=== PATIENT | male | born 1940 | race Caucasian/White ===

== ENCOUNTER 2018-08-31 21:50 | Emergency (ER) | payer MEDICARE ==
--- NOTE | 2018-08-31 22:12 | ED ---
GI/ HPI - HPI Summary HPI Summary: This patient is a 78 year old M transferred from [place] by ambulance with a chief complaint of penile swelling since this morning. Patient reports edema. Patient denies pain and fever. The area is non-necrotic. When he first saw symptoms, he attempted to treat it with Vaseline and was unsuccessful. He is uncircumcised and sometimes has to pull his foreskin back to urinate, but reports that he has not done this in the last few days. Today his foreskin would not rebound back into place. They attempted to put it in place while in [place] but were unsuccessful. He does not have a urologist. No PMHx urinary problems. PMHx iron deficiency, nothing else. Rx iron pills. - History of Current Complaint Chief Complaint: EDUrogenitalProblems Stated Complaint: UROGENITAL PROBLEMS Hx Obtained From: Patient Onset/Duration: Started Hours Ago Timing: Constant Pain Intensity: 0 Additional Locations for Males: Penis Additional Signs & Symptoms: Positive: Penile Swelling - Allergy/Home Medications Allergies/Adverse Reactions: Allergies Allergy/AdvReac Type Severity Reaction Status Date / Time aspirin Allergy Unknown Verified 08/31/18 21:57 Reaction Details Home Medications: Home Medications Iron 90 mg PO BID 08/31/18 [History Confirmed 08/31/18] PMH/Surg Hx/FS Hx/Imm Hx Previously Healthy: Yes - No history Infectious Disease History: No Infectious Disease History: Denies: Traveled Outside the in Last 30 Days - Family History Known Family History: Positive: None - Social History Alcohol Use: None Substance Use Type: Reports: None Smoking Status (MU): Never Smoked Tobacco Review of Systems Negative: Fever Positive: other - penile swelling. Negative: pain All Other Systems Reviewed And Are Negative: Yes Physical Exam - Summary Physical Exam Summary: Appearance: Well-appearing, Well-nourished, lying in bed comfortable Skin: Warm, dry, no obvious rash Eyes: sclera anicteric, no conjunctival pallor ENT: mucous membranes moist Neck: deferred Respiratory: No signs of respiratory distress Cardiovascular: Appears well perfused, pulses are nml Abdomen: deferred Musculoskeletal: Moving all 4 extremities without obvious discomfort Neurological: Awake and alert, mentation is normal, speech is fluent and appropriate Psychiatric: affect is normal, does not appear anxious or depressed : There is paraphimosis with considerable swelling. There is no color change in the glands. No signs of ischemia. Triage Information Reviewed: Yes Vital Signs On Initial Exam: Initial Vitals Temp Pulse Resp BP Pulse Ox 98.6 F 101 18 196/112 98 08/31/18 21:53 08/31/18 21:53 08/31/18 21:53 08/31/18 21:53 08/31/18 21:53 Vital Signs Reviewed: Yes Diagnostics - Vital Signs Vital Signs Temp Pulse Resp BP Pulse Ox 08/31/18 22:03 87 100 08/31/18 22:02 96 181/91 100 08/31/18 21:59 93 177/124 100 08/31/18 21:54 105 196/112 98 08/31/18 21:53 98.6 F 110 18 196/112 100 - Laboratory Lab Statement: Any lab studies that have been ordered have been reviewed, and results considered in the medical decision making process. GIGU Course/Dx - Course Course Of Treatment: This patient is a 78 year old M transferred from [place] by ambulance with a chief complaint of penile swelling since this morning. Patient reports edema. Patient denies pain and fever. The area is non-necrotic. When he first saw symptoms, he attempted to treat it with Vaseline and was unsuccessful. He is uncircumcised and sometimes has to pull his foreskin back to urinate, but reports that he has not done this in the last few days. Today his foreskin would not rebound back into place. They attempted to put it in place while in [place] but were unsuccessful. I have attempted myself here and am unsuccessful. I spoke with Dr. Jean by phone who would like to see the patient in his office at 8 am. The pt does not have an easily accessible ride overnight so we will hold him in the ED overnight and discharge him in the am to see Dr. Jean. - Diagnoses Provider Diagnoses: Paraphimosis - Physician Notifications Discussed Care Of Patient With: Warren Jean Time Discussed With Above Provider: 22:30 - see him at 8:00 am tomorrow Discharge - Sign-Out/Discharge Documenting (check all that apply): Patient Departure - Discharge Plan Condition: Good Disposition: HOME Patient Education Materials: Acute Paraphimosis (ED) Referrals: Warren Jean MD [Medical Doctor] - Additional Instructions: Go directly to Dr. Jean's office, he asked that you be there at 8 am so he can address the problem definitively. - Billing Disposition and Condition Condition: GOOD Disposition: Home - Attestation Statements Document Initiated by Ernie: Yes Documenting Scribe: Derrek Winter Provider For Whom Ernie is Documenting (Include Credential): Cristopher Luna MD Scribe Attestation: I, Derrek Winter, scribed for Cristopher Luna MD on 09/01/18 at 1836. Scribe Documentation Reviewed: Yes Provider Attestation: The documentation as recorded by the Derrek tong accurately reflects the service I personally performed and the decisions made by me, Cristopher Luna MD Status of Scrbautistae Document: Viewed
--- OUTSIDE RECORDS SUMMARY | 2018-08-31 22:34 | XMS REPORT | Continuity of Care Document ---
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 Eneida Madera MD Primary Care Physician Unavailable Payers Type Date Identification Numbers Payment Provider Subscriber Policy Number: [id number] Medicare Chema Rodrigues PayID: [id number] [address] [place] [address] Policy Number: [id number] [facility] Chema Rodrigues PayID: [id number] [address] [place] [address] Advance Directives Description No Information Available Problems Description No Information Family History Description No Information Available Social History Type Date Description Comments Sex Unknown Allergies, Adverse Reactions, Alerts Description No Known Drug Allergies Medications Medication Date Status Form Strength Qnty SIG Indications Ordering Provider Ferrous Active Tablets 325(65Fe) mg 1 po qd Unknown Sulfate 00 Immunizations Description No Information Available Vital Signs Date Vital Result Comment 08/31/2018 3:42pm Weight 150.00 lb Height 72 inches 6'0" BMI (Body Mass Index) 20.3 kg/m2 BP Systolic 131 mmHg BP Diastolic 73 mmHg Heart Rate 110 /min O2 % BldC Oximetry 100 % Body Temperature 96.7 F Pain Level 0 08/09/2007 1:41pm Weight 157.00 lb Height 72 inches 6'0" BMI (Body Mass Index) 21.3 kg/m2 Heart Rate 68 /min O2 % BldC Oximetry 99 % Results Description No Information Available Procedures Description No Information Available Encounters Type Date Location Provider Dx Diagnosis Office Visit 08/09/2007 1:30p Main Office Charlie Almendarez M.D. 380.4 Cerumen Removal Plan of Treatment No Information Available
--- OUTSIDE RECORDS SUMMARY | 2018-08-31 22:35 | XMS REPORT | Continuity of Care Document ---
:1940 External Reference #:[id number] Author Name Britney Modi Care Team Providers Name Role Phone Eneida Madera MD Primary Care Physician Unavailable Payers Type Date Identification Numbers Payment Provider Subscriber Effective: Policy Number: [id number] Medicare Chema Rodrigues 2006 PayID: [id number] [address] [place] [address] Policy Number: [id number] [facility] [employer] Program Chema Rodrigues PayID: [id number] [address] [place] [address] Advance Directives Description No Information Available Problems Date Description Provider Status Onset: 02/03/2011 Open wound of finger without complication Eneida Madera M.D. Active Onset: 02/03/2011 Hyperlipidemia Eneida Madera M.D. Active Family History Date Family Member(s) Problem(s) Comments General Osteoarthritis Father Heart Disease Father Cancer Mother Diabetes Mellitus, II First Brother Alzheimer's Disease First Sister Diabetes Mellitus, II First Sister Heart Disease First Sister Sleep Apnea Second Sister Cancer Social History Type Date Description Comments Sex Unknown Tobacco Use Start: Unknown Denies Smoking QUIT IN 1970 ETOH Use Denies alcohol use Tobacco Use Start: Unknown End: Unknown Patient is a former smoker Smoking Status Reviewed: 07/07/17 Patient is a former smoker Allergies, Adverse Reactions, Alerts Date Description Reaction Status Severity Comments 03/21/2006 Aspirin Active Bleeding Ulcer 03/28/2006 Bee Stings Active Medications Medication Date Status Form Strength Qnty SIG Indications Ordering Provider Iron (Ferrous Active Tablets ER 142(45Fe) 180tabs 2 by D50.9 Eneida Sulfate) 018 mg mouth Santy, every M.D. day No Meds Active Eneida 006 Gauss, M.D. Iron (Ferrous Hx Tablets 256(28Fe) 100tabs 1 by D50.9 Eneida Gluconate) 017 - mg mouth Gauss, every M.D. 018 day Ranitidine Hx Capsules 150mg 60caps 1 by K29.61 Eneida HCL 017 - mouth Gauss, twice a M.D. 018 day Celebrex Hx Capsules 200mg 60caps 1 po D50.9 Eneida 016 - bid Gauss, with M.D. 016 food Meloxicam Hx Tablets 7.5mg 60tabs 1 by D50.9 Eneida 016 - mouth Gauss, twice a M.D. 017 day with food Iron (Ferrous Hx Tablets 256(28Fe) 100tabs 1 by D50.9 Eneida Gluconate) 016 - mg mouth Gauss, every M.D. 017 day Centrum Hx Tablets Adult 50 120tabs 1 by 281.9 Eneida Silver Adult 015 - mouth Gauss, 50+ daily M.D. 017 Celebrex Hx Capsules 200mg 60caps 1 po Eneida 010 - bid Gauss, with M.D. 011 food Flexeril Hx Tablets 5mg 30tabs 1 po 840.9 Eneida 009 - tid prn Gauss, M.D. 009 Celebrex Hx Capsules 200mg 20caps 1 PO 840.9 Eneida 009 - bid Gauss, M.D. 009 Immunizations CPT Code Status Date Vaccine Reaction Lot # [id number] Given 06/05/2018 Influenza Virus (Afluria) Split Virus 3 Years Of Age And Older 75617 Given 06/05/2018 Influenza Virus Vaccine, Quadrivalent, Split, Preservative Free Q2035 Given 07/07/2017 Influenza Virus (Afluria) [id number] Split Virus 3 Years Of Age And Older Q2037 Given 04/28/2016 Influenza Vaccine [id number] (Fluvirin) 3 Years Of Age Or Older Q2037 Given 06/30/2015 Influenza Vaccine [id number] (Fluvirin) 3 Years Of Age Or Older Q2037 Given 05/09/2014 Influenza Vaccine (Fluvirin) 3 Years Of Age Or Older [id number] Given 05/30/2013 Influenza Virus (Afluria) Split Virus 3 Years Of Age And Older Q2035 Given 05/30/2013 Influenza Virus (Afluria) [id number] Split Virus 3 Years Of Age And Older 32160 Given 04/05/2013 Zostavax Done through [facility] 73161 Given 05/18/2012 [place]ov[place] [id number] [place] [address] Given 05/18/2012 Pneumovax Polyvalent Inj Im Q2037 Given 05/18/2012 Influenza Vaccine [id number] (Fluvirin) 3 Years Of Age Or Older Q2037 Given 05/18/2012 Influenza Vaccine (Fluvirin) 3 Years Of Age Or Older Q2036 Given 06/08/2011 Flulaval [id number] 60300 Given 02/03/2011 Tetanus,Diphtheria,Adut/Ad [id number] ol Pertussis 72505 Given 06/23/2010 Influenza Vaccine [id number] 03032 Given 04/17/2009 Influenza Vaccine [id number] 33320 Given 11/10/1998 DT Immunization DIP/Tet (History Only) Vital Signs Date Vital Result Comment 08/16/2018 11:46am BP Systolic 134 mmHg BP Diastolic 92 mmHg Heart Rate 80 /min Height 70 inches 5'10" Weight 150.00 lb BMI (Body Mass Index) 21.5 kg/m2 O2 % BldC Oximetry 97 % 07/26/2018 2:02pm BP Systolic 130 mmHg sitting BP Diastolic 78 mmHg sitting BP Systolic Recheck 138 mmHg standing BP Diastolic Recheck 78 mmHg standing Height 70 inches 5'10" Weight 150.00 lb BMI (Body Mass Index) 21.5 kg/m2 06/05/2018 10:59am BP Systolic 132 mmHg BP Diastolic 80 mmHg BP Systolic Recheck 90 mmHg standing BP Diastolic Recheck 60 mmHg standing Heart Rate 78 /min Respiratory Rate 18 /min Height 70 inches 5'10" Weight 150.00 lb BMI (Body Mass Index) 21.5 kg/m2 O2 % BldC Oximetry 93 % 04/26/2018 2:13pm BP Systolic 146 mmHg BP Diastolic 88 mmHg BP Systolic Recheck 110 mmHg standing BP Diastolic Recheck 80 mmHg standing Height 70 inches 5'10" Weight 152.00 lb BMI (Body Mass Index) 21.8 kg/m2 12/05/2017 10:46am BP Systolic 128 mmHg BP Diastolic 68 mmHg Heart Rate 107 /min Respiratory Rate 18 /min Height 70 inches 5'10" Weight 163.00 lb BMI (Body Mass Index) 23.4 kg/m2 O2 % BldC Oximetry 97 % 10/10/2017 11:18am BP Systolic 126 mmHg BP Diastolic 86 mmHg Respiratory Rate 18 /min Height 70 inches 5'10" Weight 160.00 lb BMI (Body Mass Index) 23.0 kg/m2 07/07/2017 10:18am BP Systolic 120 mmHg BP Diastolic 78 mmHg Height 70 inches 5'10" Weight 158.00 lb BMI (Body Mass Index) 22.7 kg/m2 01/05/2017 11:12am BP Systolic 130 mmHg BP Diastolic 80 mmHg Height 70 inches 5'10" Weight 165.00 lb BMI (Body Mass Index) 23.7 kg/m2 12/08/2016 10:00am BP Systolic 130 mmHg BP Diastolic 82 mmHg Height 70 inches 5'10" Weight 166.00 lb BMI (Body Mass Index) 23.8 kg/m2 06/09/2016 11:35am BP Systolic 132 mmHg BP Diastolic 90 mmHg Height 70 inches 5'10" Weight 161.00 lb BMI (Body Mass Index) 23.1 kg/m2 04/28/2016 10:47am BP Systolic 132 mmHg BP Diastolic 80 mmHg Height 70 inches 5'10" Weight 170.00 lb BMI (Body Mass Index) 24.4 kg/m2 02/19/2016 10:03am BP Systolic 132 mmHg BP Diastolic 60 mmHg 02/18/2016 3:14pm BP Systolic 132 mmHg BP Diastolic 60 mmHg 06/30/2015 2:01pm BP Systolic 132 mmHg BP Diastolic 76 mmHg Height 70 inches 5'10" Weight 157.00 lb BMI (Body Mass Index) 22.5 kg/m2 05/15/2015 10:30am BP Systolic 130 mmHg BP Diastolic 80 mmHg Height 70 inches 5'10" Weight 154.00 lb BMI (Body Mass Index) 22.1 kg/m2 04/14/2015 10:15am BP Systolic 130 mmHg BP Diastolic 70 mmHg Height 70 inches 5'10" Weight 158.00 lb BMI (Body Mass Index) 22.7 kg/m2 04/17/2014 1:41pm BP Systolic 110 mmHg BP Diastolic 70 mmHg Height 70 inches 5'10" Weight 158.00 lb BMI (Body Mass Index) 22.7 kg/m2 04/05/2013 10:44am BP Systolic 132 mmHg BP Diastolic 80 mmHg Height 70 inches 5'10" Weight 160.00 lb BMI (Body Mass Index) 23.0 kg/m2 11/06/2012 1:34pm BP Systolic 132 mmHg BP Diastolic 80 mmHg Height 70 inches 5'10" Weight 166.00 lb BMI (Body Mass Index) 23.8 kg/m2 04/06/2012 10:17am BP Systolic 102 mmHg BP Diastolic 70 mmHg Height 70 inches 5'10" Weight 155.00 lb BMI (Body Mass Index) 22.2 kg/m2 03/29/2011 10:56am BP Systolic 122 mmHg BP Diastolic 73 mmHg Height 72 inches 6'0" Weight 156.00 lb BMI (Body Mass Index) 21.2 kg/m2 02/03/2011 3:00pm BP Systolic 121 mmHg BP Diastolic 71 mmHg Body Temperature 98.9 F Weight 159.00 lb 06/23/2010 2:21pm BP Systolic 106 mmHg BP Diastolic 78 mmHg Weight 160.00 lb 03/16/2010 11:45am BP Systolic 120 mmHg BP Diastolic 88 mmHg 03/16/2010 11:05am BP Systolic 130 mmHg BP Diastolic 92 mmHg Weight 158.00 lb 06/30/2009 11:14am BP Systolic 128 mmHg BP Diastolic 90 mmHg Weight 158.00 lb 04/17/2009 10:52am BP Systolic 124 mmHg BP Diastolic 70 mmHg Height 72 inches 6'0" Weight 156.00 lb BMI (Body Mass Index) 21.2 kg/m2 09/10/2008 2:33pm BP Systolic 132 mmHg BP Diastolic 78 mmHg Height 72 inches 6'0" Weight 165.00 lb BMI (Body Mass Index) 22.4 kg/m2 04/03/2008 10:07am BP Systolic 130 mmHg BP Diastolic 80 mmHg Height 72 inches 6'0" Weight 158.00 lb BMI (Body Mass Index) 21.4 kg/m2 04/04/2007 1:42pm BP Systolic 128 mmHg BP Diastolic 84 mmHg Height 72 inches 6'0" 04/04/2007 1:17pm BP Systolic 140 mmHg BP Diastolic 90 mmHg Height 72 inches 6'0" Weight 158.00 lb BMI (Body Mass Index) 21.4 kg/m2 04/04/2006 10:40am BP Systolic 130 mmHg BP Diastolic 78 mmHg Height 72 inches 6'0" Weight 159.00 lb BMI (Body Mass Index) 21.6 kg/m2 Results Test Date Facility Test Result H/L Range Note CBC W/ Diff & PLT 08/02/2018 [facility] WBC 10.6 thous/L 3.8-10.8 [address] [facility] [address] [phone] RBC 4.53 mill/L 4.20-5.80 Hemoglobin 11.0 g/dL Low 13.2-17.1 Hematocrit 34.2 % Low 38.5-50.0 MCV 75.6 FL Low 80.0-100.0 MCH 24.2 pg Low 27.0-33.0 MCHC 32.0 g/dL 32.0-36.0 RDW 19.5 % High 11.0-15.0 Platelet Count 550 thous/L High 140-400 MPV 9.5 FL 7.5-12.5 Neutrophils,Absolute 5830 cells/L 0681-8545 Bands,Absolute PENDING Metamyelocytes,Absolute PENDING Myelocytes,Absolute PENDING Promyelocytes,Absolute PENDING Lymphocytes,Absolute 3922 cells/L High 850-3900 Monocytes,Absolute 424 cells/L 200-950 Eosinophils,Absolute 318 cells/L 15-500 Basophils,Absolute 106 cells/L 0-200 Blast Cells,Absolute PENDING Nucleated RBC,Absolute PENDING Total Neutrophils,% 55 % 40-75 Bands,% PENDING Metamyelocytes,% PENDING Myelocytes,% PENDING Promyelocytes,% PENDING Total Lymphocytes,% 37 % 12-47 Reactive Lymphocytes PENDING Monocytes,% 4 % 4-12 Eosinophils,% 3 % 0-4 Basophils,% 1 % 0-1 1 Blasts,% PENDING Nucleated RBC PENDING Comment See Message 2 Basic Metabolic Panel 08/02/2018 [facility] Sodium 137 mmol/L 135-146 [address] [facility] [place], [place] [id number] [phone] Potassium 4.6 mmol/L 3.5-5.3 Chloride 103 mmol/L 98-110 Carbon Dioxide 28 mmol/L 20-32 3 Calcium 8.9 mg/dL 8.6-10.3 Glucose 92 mg/dL 65-99 4 Urea Nitrogen (BUN) 15 mg/dL 7-25 Creatinine 1.32 mg/dL High 0.70-1.18 5 BUN/Creatinine Ratio 11.4 6-22 Egfr Non-Afr. [place] 52 ML/MIN/1.73M2 Low > Or=60 Egfr 60 ML/MIN/1.73M2 > Or=60 Ua RFX Micro & 07/25/2018 [facility] Urine Color YELLOW Yellow 6 Culture II [address] [place] [address] [phone] Urine Clarity CLEAR Clear Urine Glucose - Dipstick NEGATIVE mg/dL Negative Urine Bilirubin - Dipstick NEGATIVE Negative Urine Ketone NEGATIVE mg/dL Negative Urine Specific [place] <=1.005 Low 1.010-1.030 Urine Blood NEGATIVE Negative Urine PH 6.0 Low 6.5-7.5 Urine Protein - Dipstick NEGATIVE mg/dL Negative Urine Urobilinogen - Dipstick 1.0 E.U./dL N 0.2-1.0 Urine Nitrite - Dipstick NEGATIVE Negative Urine Leuk Esterase NEGATIVE Negative Source: URINE, CLEAN CAT <SEE NOTE> 7 Basic Metabolic Panel 05/22/2018 [facility] Sodium 143 mmol/L 135-[address] [place] [address] [phone] Potassium 5.4 mmol/L High 3.5-5.3 Chloride 110 mmol/L 98-110 Carbon Dioxide 23 mmol/L 20-32 9 Calcium 9.3 mg/dL 8.6-10.3 Glucose 96 mg/dL 65-99 10 Urea Nitrogen (BUN) 16 mg/dL 7-25 Creatinine 1.67 mg/dL High 0.70-1.18 11 BUN/Creatinine Ratio 9.6 6-22 Egfr Non-Afr. [place] 39 ML/MIN/1.73M2 Low > Or=60 Egfr 45 ML/MIN/1.73M2 Low > Or=60 CBC 05/22/2018 [facility] WBC 7.9 3.8-10.8 (H/H,RBC,Indices,WBC,PLT) [address] thous[address] [address] [phone] RBC 4.42 mill/L 4.20-5.80 Hemoglobin 9.1 g/dL Low 13.2-17.1 Hematocrit 29.9 % Low 38.5-50.0 MCV 67.6 FL Low 80.0-100.0 MCH 20.5 pg Low 27.0-33.0 MCHC 30.4 g/dL Low 32.0-36.0 RDW 24.9 % High 11.0-15.0 Platelet Count 506 thous/L High 140-400 MPV 9.4 FL 7.5-12.5 Iron Deficiency 05/22/2018 [facility] Iron,Total 14 g/dL Low 50-[address] [place] [address] [phone] Tibc 393 g/dL 250-425 % Saturation 4 % Low 15-60 Ferritin 7 NG/ML Low 20-380 Hemogram 11/28/2017 [facility] WBC 8.1 thous/L 3.8-10.[address] [place] [address] [phone] RBC 4.86 mill/L 4.20-5.80 Hemoglobin 9.8 g/dL Low 13.2-17.1 Hematocrit 32.7 % Low 38.5-50.0 MCV 67.2 FL Low 80.0-100.0 MCH 20.2 pg Low 27.0-33.0 MCHC 30.1 g/dL Low 32.0-36.0 RDW 18.3 % High 11.0-15.0 Laboratory test 11/28/2017 [facility] Iron,Total 19 g/dL Low 50-[address] [place] [address] [phone] CBC W/ Diff & PLT 10/03/2017 [facility] WBC 8.4 3.8-10.[address] thous[address] [address] [phone] RBC 4.76 mill/L 4.20-5.80 Hemoglobin 9.9 g/dL Low 13.2-17.1 Hematocrit 32.7 % Low 38.5-50.0 MCV 68.7 FL Low 80.0-100.0 MCH 20.9 pg Low 27.0-33.0 MCHC 30.4 g/dL Low 32.0-36.0 RDW 20.6 % High 11.0-15.0 Platelet Count 372 thous/L 140-400 Platelet Sufficiency PENDING MPV 9.2 FL 7.5-12.5 Neutrophils,Absolute 6060 cells/L 0450-8002 Bands,Absolute PENDING Metamyelocytes,Absolute PENDING Myelocytes,Absolute PENDING Promyelocytes,Absolute PENDING Lymphocytes,Absolute 1780 cells/L 850-3900 Monocytes,Absolute 270 cells/L 200-950 Eosinophils,Absolute 270 cells/L 15-500 Basophils,Absolute 50 cells/L 0-200 Blast Cells,Absolute PENDING Nucleated RBC,Absolute PENDING Total Neutrophils,% 72 % 40-75 Bands,% PENDING Metamyelocytes,% PENDING Myelocytes,% PENDING Promyelocytes,% PENDING Total Lymphocytes,% 21 % 12-47 Monocytes,% 3 % Low 4-12 Eosinophils,% 3 % 0-4 Basophils,% 1 % 0-1 12 Blasts,% PENDING Nucleated RBC PENDING RBC Morphology PENDING Anisocytosis 3+ Poikilocytosis PENDING Microcytosis 2+ Macrocytosis PENDING Polychromasia PENDING Hypochromasia 3+ Target Cells PENDING Basophilic Stippling PENDING Comment PENDING Basic Metabolic Panel 10/03/2017 [facility] Sodium 143 mmol/L 135-146 [address] [place] [address] [phone] Potassium 5.1 mmol/L 3.5-5.3 Chloride 110 mmol/L 98-110 Carbon Dioxide 27 mmol/L 20-31 Calcium 9.4 mg/dL 8.6-10.3 Glucose 97 mg/dL 65-99 13 Urea Nitrogen (BUN) 17 mg/dL 7-25 Creatinine 1.69 mg/dL High 0.70-1.18 14 BUN/Creatinine Ratio 10.2 6-22 Egfr Non-Afr. [place] 39 ML/MIN/1.73M2 Low > Or=60 Egfr 45 ML/MIN/1.73M2 Low > Or=60 Laboratory test 10/03/2017 [facility] PSA,Total 2.1 NG/ML < Or=4.0 15 finding [address] [place] [address] [phone] Lipid Panel 10/03/2017 [facility] Cholesterol 185 mg/dL <[address] [place] [address] [phone] HDL Cholesterol 65 mg/dL >40 Cholesterol/HDL Ratio 2.8 CALC <5.0 LDL Chol,Calculated 106 mg/dL High 0-100 16 Triglycerides 53 mg/dL <150 Non-HDL Cholesterol 121 mg/dL <130 17 Basic Metabolic Panel 06/30/2017 [facility] Sodium 143 mmol/L 135-146 [address] [facility] [facility] [address] [phone] Potassium 4.9 mmol/L 3.5-5.3 Chloride 110 mmol/L 98-110 Carbon Dioxide 25 mmol/L 20-31 Calcium 8.7 mg/dL 8.6-10.3 Glucose 96 mg/dL 65-99 18 Urea Nitrogen (BUN) 14 mg/dL 7-25 Creatinine 1.35 mg/dL High 0.70-1.18 19 BUN/Creatinine Ratio 10.4 6-22 Egfr Non-Afr. [place] 51 ML/MIN/1.73M2 Low > Or=60 Egfr 59 ML/MIN/1.73M2 Low > Or=60 Lipid Panel 06/30/2017 [facility] Cholesterol 189 mg/dL <199 [address] [place] [address] [phone] HDL Cholesterol 63 mg/dL >40 Cholesterol/HDL Ratio 3.0 CALC <5.0 LDL Chol,Calculated 112 mg/dL High <100 20 Triglycerides 48 mg/dL <150 Non-HDL Cholesterol 126 mg/dL <130 21 Laboratory test 06/30/2017 [facility] PSA,Total 2.1 NG/ML < Or=4.0 22 finding [address] [facility] [facility] [address] [phone] CBC W/ Diff & PLT 06/30/2017 [facility] WBC 7.4 thous/L 3.8-10.8 [address] [place] [address] [phone] RBC 4.35 mill/L 4.20-5.80 Hemoglobin 8.1 g/dL Low 13.2-17.1 Hematocrit 27.9 % Low 38.5-50.0 MCV 64.1 FL Low 80.0-100.0 MCH 18.6 pg Low 27.0-33.0 MCHC 29.0 g/dL Low 32.0-36.0 23 RDW 18.7 % High 11.0-15.0 Platelet Count 441 thous/L High 140-400 Platelet Sufficiency PENDING MPV 9.1 FL 7.5-12.5 Neutrophils,Absolute 5180 cells/L 7424-3750 Bands,Absolute PENDING Metamyelocytes,Absolute PENDING Myelocytes,Absolute PENDING Promyelocytes,Absolute PENDING Lymphocytes,Absolute 1850 cells/L 850-3900 Monocytes,Absolute 222 cells/L 200-950 Eosinophils,Absolute 148 cells/L 15-500 Basophils,Absolute PENDING Blast Cells,Absolute PENDING Nucleated RBC,Absolute PENDING Total Neutrophils,% 70 % 40-75 Bands,% PENDING Metamyelocytes,% PENDING Myelocytes,% PENDING Promyelocytes,% PENDING Total Lymphocytes,% 25 % 12-47 Monocytes,% 3 % Low 4-12 Eosinophils,% 2 % 0-4 Basophils,% PENDING Blasts,% PENDING Nucleated RBC PENDING RBC Morphology PENDING Anisocytosis PENDING Poikilocytosis PENDING Microcytosis 3+ Macrocytosis PENDING Polychromasia PENDING Hypochromasia 3+ Target Cells PENDING Basophilic Stippling PENDING Comment See Message 24 Iron & Ferritin 12/01/2016 [facility] Iron,Total 24 g/dL Low 50-180 6 [place] [address] [phone] Ferritin 9 NG/ML Low 20-380 CBC W/ Diff & PLT 12/01/2016 [facility] WBC 8.8 thous/L 3.8-10.8 6 [place] [address] [phone] RBC 4.96 mill/L 4.20-5.80 Hemoglobin 11.2 g/dL Low 13.2-17.1 Hematocrit 37.4 % Low 38.5-50.0 MCV 75.3 FL Low 80.0-100.0 MCH 22.6 pg Low 27.0-33.0 MCHC 29.9 g/dL Low 32.0-36.0 RDW 19.0 % High 11.0-15.0 Platelet Count 360 thous/L 140-400 Platelet Sufficiency NORMAL Normal MPV 9.5 FL 7.5-12.5 Neutrophils,Absolute 5780 cells/L 7911-5152 Bands,Absolute PENDING Metamyelocytes,Absolute PENDING Myelocytes,Absolute PENDING Promyelocytes,Absolute PENDING Lymphocytes,Absolute 2290 cells/L 850-3900 Monocytes,Absolute 390 cells/L 200-950 Eosinophils,Absolute 320 cells/L 15-500 Basophils,Absolute 30 cells/L 0-200 Blast Cells,Absolute PENDING Nucleated RBC,Absolute PENDING Total Neutrophils,% 66 % 40-75 Bands,% PENDING Metamyelocytes,% PENDING Myelocytes,% PENDING Promyelocytes,% PENDING Total Lymphocytes,% 26 % 12-47 Monocytes,% 4 % 4-12 Eosinophils,% 4 % 0-4 Basophils,% 0 % 0-1 25 Blasts,% PENDING Nucleated RBC PENDING RBC Morphology PENDING Anisocytosis PENDING Poikilocytosis PENDING Microcytosis PENDING Macrocytosis PENDING Polychromasia PENDING Hypochromasia 2+ Target Cells PENDING Basophilic Stippling PENDING Comment PENDING Iron & Ferritin 06/02/2016 [facility] Iron,Total 19 g/dL Low 50-[address] [place], [place] [id number] [phone] Ferritin 8 NG/ML Low 20-380 Laboratory test 06/02/2016 [facility] Vitamin 327 pg/mL 200-1100 [address] B12,[place] [address] [phone] CBC W/ Diff & 06/02/2016 [facility] WBC 7.2 3.8-10.[address] thous[address] [place], [place] [id number] [phone] RBC 4.63 mill/L 4.20-5.80 Hemoglobin 8.9 g/dL Low 13.2-17.1 Hematocrit 29.8 % Low 38.5-50.0 MCV 64.4 FL Low 80.0-100.0 MCH 19.1 pg Low 27.0-33.0 MCHC 29.7 g/dL Low 32.0-36.0 RDW 25.0 % High 11.0-15.0 Platelet Count 356 thous/L 140-400 Platelet Sufficiency PENDING MPV 8.9 FL 7.5-11.5 Neutrophils,Absolute 4176 cells/L 6266-7607 Bands,Absolute PENDING Metamyelocytes,Absolute PENDING Myelocytes,Absolute PENDING Promyelocytes,Absolute PENDING Lymphocytes,Absolute 2664 cells/L 850-3900 Monocytes,Absolute 288 cells/L 200-950 Eosinophils,Absolute PENDING Basophils,Absolute 72 cells/L 0-200 Blast Cells,Absolute PENDING Nucleated RBC,Absolute PENDING Total Neutrophils,% 58 % 40-75 Bands,% PENDING Metamyelocytes,% PENDING Myelocytes,% PENDING Promyelocytes,% PENDING Total Lymphocytes,% 37 % 12-47 Monocytes,% 4 % 4-12 Eosinophils,% PENDING Basophils,% 1 % 0-1 27 Blasts,% PENDING Nucleated RBC PENDING RBC Morphology PENDING Anisocytosis 3+ Poikilocytosis PENDING Microcytosis 3+ Macrocytosis PENDING Polychromasia PENDING Hypochromasia 3+ Target Cells PENDING Basophilic Stippling PENDING Comment See Message 28 CBC W/ Diff & PLT 04/12/2016 [facility] WBC 7.1 thous/L 3.8-10.8 [address] [place], [place] [address] [phone] RBC 4.47 mill/L 4.20-5.80 Hemoglobin 7.8 g/dL Low 13.2-17.1 Hematocrit 27.2 % Low 38.5-50.0 MCV 60.9 FL Low 80.0-100.0 MCH 17.5 pg Low 27.0-33.0 MCHC 28.8 g/dL Low 32.0-36.0 RDW 20.8 % High 11.0-15.0 Platelet Count 322 thous/L 140-400 Platelet Sufficiency NORMAL Normal MPV 9.0 FL 7.5-11.5 Neutrophils,Absolute 3550 cells/L 1050-5748 Bands,Absolute PENDING Metamyelocytes,Absolute PENDING Myelocytes,Absolute PENDING Promyelocytes,Absolute PENDING Lymphocytes,Absolute 3053 cells/L 850-3900 Monocytes,Absolute 426 cells/L 200-950 Eosinophils,Absolute 71 cells/L 15-500 Basophils,Absolute PENDING Blast Cells,Absolute PENDING Nucleated RBC,Absolute PENDING Total Neutrophils,% 50 % 40-75 Bands,% PENDING Metamyelocytes,% PENDING Myelocytes,% PENDING Promyelocytes,% PENDING Total Lymphocytes,% 43 % 12-47 Monocytes,% 6 % 4-12 Eosinophils,% 1 % 0-4 Basophils,% PENDING Blasts,% PENDING Nucleated RBC PENDING RBC Morphology PENDING Anisocytosis 3+ Poikilocytosis PENDING Microcytosis 3+ Macrocytosis PENDING Polychromasia PENDING Hypochromasia 3+ Target Cells PENDING Basophilic Stippling PENDING Comment See Message 29 Laboratory test 04/12/2016 [facility] Iron,Total 17 g/dL Low 50-[address] [place] [address] [phone] BMP W/O Egfr 04/12/2016 [facility] Sodium 141 mmol/L 135-[address] [place] [address] [phone] Potassium 4.2 mmol/L 3.5-5.3 Chloride 109 mmol/L 98-110 Carbon Dioxide 24 mmol/L 20-31 Calcium 8.6 mg/dL 8.6-10.3 Glucose 96 mg/dL 65-99 30 Urea Nitrogen 15 mg/dL 7-25 Creatinine 1.46 mg/dL High 0.70-1.18 31 BUN/Creatinine Ratio 10.1 6-22 Lipid Panel 04/12/2016 [facility] Cholesterol 180 mg/dL 125-[address] [place] [address] [phone] HDL Cholesterol 58 mg/dL > Or=40 Cholesterol/HDL Ratio 3.1 < Or=5.0 LDL Chol,Calculated 109 mg/dL <130 32 Triglycerides 65 mg/dL <150 Non-HDL Cholesterol 121 mg/dL 33 Laboratory test 04/12/2016 [facility] PSA,Total 1.6 NG/ML < Or=4.0 [address] [place] [address] [phone] Laboratory test 06/26/2015 [facility] Iron,Total 17 g/dL Low 50-[address] [place] [address] [phone] CBC W/ Diff & PLT 06/26/2015 [facility] WBC 7.0 3.8-10.[address] [place] [address] [phone] RBC 4.19 mill/L Low 4.20-5.80 Hemoglobin 8.8 g/dL Low 13.2-17.1 Hematocrit 28.5 % Low 38.5-50.0 MCV 68.1 FL Low 80.0-100.0 MCH 21.1 pg Low 27.0-33.0 MCHC 31.0 g/dL Low 32.0-36.0 RDW 18.0 % High 11.0-15.0 Platelet Count 337 thous/L 140-400 Platelet Sufficiency PENDING MPV 8.9 FL 7.5-11.5 Neutrophils,Absolute 4360 cells/L 0041-9455 Bands,Absolute PENDING Metamyelocytes,Absolute PENDING Myelocytes,Absolute PENDING Promyelocytes,Absolute PENDING Lymphocytes,Absolute 2090 cells/L 850-3900 Monocytes,Absolute 400 cells/L 200-950 Eosinophils,Absolute 80 cells/L 15-500 Basophils,Absolute 30 cells/L 0-200 Blast Cells,Absolute PENDING Nucleated RBC,Absolute PENDING Total Neutrophils,% 63 % 40-75 Bands,% PENDING Metamyelocytes,% PENDING Myelocytes,% PENDING Promyelocytes,% PENDING Total Lymphocytes,% 30 % 12-47 Monocytes,% 6 % 4-12 Eosinophils,% 1 % 0-4 Basophils,% 0 % 0-1 35 Blasts,% PENDING Nucleated RBC PENDING RBC Morphology PENDING Anisocytosis PENDING Poikilocytosis PENDING Microcytosis 2+ Macrocytosis PENDING Polychromasia PENDING Hypochromasia 2+ Target Cells PENDING Basophilic Stippling PENDING Comment PENDING Laboratory test 05/06/2015 [facility] PSA,Total 1.4 NG/ML 0.0-4.0 [address] [place] [address] [phone] Hemoglobin A1c 5.6 % 0.0-5.6 37 Iron & Ferritin 05/06/2015 [facility] Iron,Total 20 g/dL Low 50-[address] [place] [address] [phone] Ferritin 4 NG/ML Low 20-380 Laboratory test 05/06/2015 [facility] Vitamin 465 pg/mL 200-[address] B12,[place] [address] [phone] BMP W/O Egfr 05/06/2015 [facility] Sodium 143 mmol/L 135-[address] [place] [address] [phone] Potassium 4.0 mmol/L 3.5-5.3 Chloride 108 mmol/L 98-110 Carbon Dioxide 22 mmol/L 19-30 Calcium 9.3 mg/dL 8.6-10.3 Glucose 99 mg/dL 65-99 38 Urea Nitrogen 22 mg/dL 7-25 Creatinine 1.53 mg/dL High 0.70-1.18 39 BUN/Creatinine Ratio 14.1 6-22 CBC W/ Diff & PLT 05/06/2015 [facility] WBC 7.6 thous/L 3.8-10.8 [address] [place] [address] [phone] RBC 4.43 mill/L 4.20-5.80 Hemoglobin 9.5 g/dL Low 13.2-17.1 Hematocrit 31.4 % Low 38.5-50.0 MCV 70.9 FL Low 80.0-100.0 MCH 21.5 pg Low 27.0-33.0 MCHC 30.3 g/dL Low 32.0-36.0 RDW 17.9 % High 11.0-15.0 Platelet Count 314 thous/L 140-400 Platelet Sufficiency PENDING MPV 9.7 FL 7.5-11.5 Neutrophils,Absolute 4190 cells/L [id number] Bands,Absolute PENDING Metamyelocytes,Absolute PENDING Myelocytes,Absolute PENDING Promyelocytes,Absolute PENDING Lymphocytes,Absolute 2790 cells/L 850-3900 Monocytes,Absolute 420 cells/L 200-950 Eosinophils,Absolute 170 cells/L 15-500 Basophils,Absolute 0 cells/L 0-200 Blast Cells,Absolute PENDING Nucleated RBC,Absolute PENDING Total Neutrophils,% 55 % 40-75 40 Bands,% PENDING Metamyelocytes,% PENDING Myelocytes,% PENDING Promyelocytes,% PENDING Total Lymphocytes,% 37 % 12-47 Monocytes,% 6 % 4-12 Eosinophils,% 2 % 0-4 Basophils,% 0 % 0-1 Blasts,% PENDING Nucleated RBC PENDING RBC Morphology PENDING Anisocytosis PENDING Poikilocytosis PENDING Microcytosis PENDING Macrocytosis PENDING Polychromasia PENDING Hypochromasia PENDING Target Cells PENDING Basophilic Stippling PENDING Comment PENDING CBC W/ Diff & PLT 04/07/2015 [facility] WBC 6.8 thous/L 3.8-10.8 [address] [place] [address] [phone] RBC 4.34 mill/L 4.20-5.80 Hemoglobin 9.4 g/dL Low 13.2-17.1 Hematocrit 31.1 % Low 38.5-50.0 MCV 71.5 FL Low 80.0-100.0 MCH 21.8 pg Low 27.0-33.0 MCHC 30.4 g/dL Low 32.0-36.0 RDW 17.6 % High 11.0-15.0 Platelet Count 293 thous/L 140-400 Platelet Sufficiency PENDING MPV 9.4 FL 7.5-11.5 Neutrophils,Absolute 3970 cells/L 4353-0731 Bands,Absolute PENDING Metamyelocytes,Absolute PENDING Myelocytes,Absolute PENDING Promyelocytes,Absolute PENDING Lymphocytes,Absolute 2160 cells/L 850-3900 Monocytes,Absolute 470 cells/L 200-950 Eosinophils,Absolute 140 cells/L 15-500 Basophils,Absolute 60 cells/L 0-200 Blast Cells,Absolute PENDING Nucleated RBC,Absolute PENDING Total Neutrophils,% 58 % Not Established Bands,% PENDING Metamyelocytes,% PENDING Myelocytes,% PENDING Promyelocytes,% PENDING Total Lymphocytes,% 32 % Not Established Monocytes,% 7 % Not Established Eosinophils,% 2 % Not Established Basophils,% 1 % Not Established Blasts,% PENDING Nucleated RBC PENDING RBC Morphology PENDING Anisocytosis PENDING Poikilocytosis PENDING Microcytosis PENDING Macrocytosis PENDING Polychromasia PENDING Hypochromasia PENDING Target Cells PENDING Basophilic Stippling PENDING Comment PENDING BMP W/O Egfr 04/07/2015 [facility] Sodium 142 mmol/L 135-146 [address] [place] [address] [phone] Potassium 4.6 mmol/L 3.5-5.3 Chloride 108 mmol/L 98-110 Carbon Dioxide 25 mmol/L 19-30 Calcium 9.3 mg/dL 8.6-10.3 Glucose 86 mg/dL 65-99 41 Urea Nitrogen 19 mg/dL 7-25 Creatinine 1.45 mg/dL High 0.70-1.18 42 BUN/Creatinine Ratio 12.8 6-22 Laboratory test 04/07/2015 [facility] Direct LDL 130 mg/dL High <130 [address] [place] [address] [phone] PSA,Total 1.5 NG/ML 0.0-4.0 44 CBC W/ Diff & PLT 03/29/2014 [facility] WBC 7.7 thous/L 3.8-10.[address] [place] [address] [phone] RBC 4.75 mill/L 4.20-5.80 Hemoglobin 13.6 g/dL 13.2-17.1 Hematocrit 40.6 % 38.5-50.0 MCV 85.4 FL 80.0-100.0 MCH 28.7 pg 27.0-33.0 MCHC 33.7 g/dL 32.0-36.0 RDW 14.2 % 11.0-15.0 Platelet Count 231 thous/L 140-400 Platelet Sufficiency PENDING Neutrophils,Absolute 4000 cells/L 8253-7972 Bands,Absolute PENDING Metamyelocytes,Absolute PENDING Myelocytes,Absolute PENDING Promyelocytes,Absolute PENDING Lymphocytes,Absolute 2880 cells/L 850-3900 Monocytes,Absolute 520 cells/L 200-950 Eosinophils,Absolute 240 cells/L 15-500 Basophils,Absolute 40 cells/L 0-200 Blast Cells,Absolute PENDING Nucleated RBC,Absolute PENDING Total Neutrophils,% 52 % Not Established Bands,% PENDING Metamyelocytes,% PENDING Myelocytes,% PENDING Promyelocytes,% PENDING Total Lymphocytes,% 37 % Not Established Monocytes,% 7 % Not Established Eosinophils,% 3 % Not Established Basophils,% 0 % Not Established Blasts,% PENDING Nucleated RBC PENDING RBC Morphology PENDING Anisocytosis PENDING Poikilocytosis PENDING Microcytosis PENDING Macrocytosis PENDING Polychromasia PENDING Hypochromasia PENDING Target Cells PENDING Basophilic Stippling PENDING Comment PENDING BMP W/O Egfr 03/29/2014 [facility] Sodium 141 mmol/L 135-[address] [place] [address] [phone] Potassium 5.0 mmol/L 3.5-5.3 Chloride 105 mmol/L 98-110 Carbon Dioxide 25 mmol/L 19-30 Calcium 9.6 mg/dL 8.6-10.3 Glucose 89 mg/dL 65-99 45 Urea Nitrogen 16 mg/dL 7-25 Creatinine 1.43 mg/dL High 0.70-1.18 46 BUN/Creatinine Ratio 11.5 6-22 Lipid Panel 03/29/2014 [facility] Cholesterol 225 mg/dL High 125-[address] [place] [address] [phone] HDL Cholesterol 64 mg/dL > Or=40 Cholesterol/HDL Ratio 3.5 < Or=5.0 LDL Chol,Calculated 146 mg/dL High <130 47 Triglycerides 77 mg/dL <150 Non-HDL Cholesterol 161 mg/dL High 48 BMP W/O Egfr 03/26/2013 [facility] Sodium 138 mmol/L 135-[address] [place] [address] [phone] Potassium 4.6 mmol/L 3.5-5.3 Chloride 106 mmol/L 98-110 Carbon Dioxide 25 mmol/L 19-30 Calcium 9.3 mg/dL 8.6-10.3 Glucose 79 mg/dL 65-99 49 Urea Nitrogen 20 mg/dL 7-25 Creatinine 1.44 mg/dL High 0.70-1.18 50 BUN/Creatinine Ratio 13.7 6-22 CBC W/ Diff & PLT 03/26/2013 [facility] WBC 7.6 thous/L 3.8-10.[address] [place] [address] [phone] RBC 5.24 mill/L 4.20-5.80 Hemoglobin 15.1 g/dL 13.2-17.1 Hematocrit 45.5 % 38.5-50.0 MCV 86.9 FL 80.0-100.0 MCH 28.8 pg 27.0-33.0 MCHC 33.2 g/dL 32.0-36.0 RDW 14.9 % 11.0-15.0 Platelet Count 229 thous/L 140-400 Neutrophils,Absolute 4240 cells/L 3736-1122 Lymphocytes,Absolute 2700 cells/L 850-3900 Monocytes,Absolute 400 cells/L 200-950 Eosinophils,Absolute 180 cells/L 15-500 Basophils,Absolute 50 cells/L 0-200 Total Neutrophils,% 56 % 38-80 Total Lymphocytes,% 36 % 15-49 Monocytes,% 5 % 0-13 Eosinophils,% 2 % 0-8 Basophils,% 1 % 0-2 Laboratory test 03/26/2013 [facility] LDL 138 mg/dL High <130 [address] [place] [address] [phone] Laboratory test 03/29/2012 [facility] PSA,Total 1.7 NG/ML 0.0-4.0 52 finding [address] [facility] [address] [phone] Basic Metabolic 03/29/2012 [facility] Sodium 141 mmol/L 135-[address] [place] [address] [phone] Potassium 4.4 mmol/L 3.5-5.3 Chloride 107 mmol/L 98-110 Carbon Dioxide 25 mmol/L 21-33 Calcium 9.1 mg/dL 8.6-10.3 Glucose 84 mg/dL 65-99 53 Urea Nitrogen 18 mg/dL 7-25 Creatinine 1.37 mg/dL High 0.70-1.18 54 BUN/Creatinine Ratio 13.1 6-22 Egfr Non-Afr. [place] 52 ML/MIN/1.73M2 Low > Or=60 Egfr 60 ML/MIN/1.73M2 > Or=60 Lipid Panel 03/29/2012 [facility] Cholesterol 206 mg/dL High 125-[address] [place] [address] [phone] HDL Cholesterol 55 mg/dL > Or=40 Cholesterol/HDL Ratio 3.7 < Or=5.0 LDL Chol,Calculated 140 mg/dL High <130 55 Triglycerides 54 mg/dL <150 Non-HDL Cholesterol 151 mg/dL 56 CBC W/ Diff & PLT 03/29/2012 [facility] WBC 6.7 thous/L 3.8-10.[address] [place] [address] [phone] RBC 4.78 mill/L 4.20-5.80 Hemoglobin 14.1 g/dL 13.2-17.1 Hematocrit 42.7 % 38.5-50.0 MCV 89.4 FL 80.0-100.0 MCH 29.6 pg 27.0-33.0 MCHC 33.1 g/dL 32.0-36.0 RDW 14.4 % 11.0-15.0 Platelet Count 219 thous/L 140-400 Neutrophils,Absolute 3710 cells/L 8256-2957 Lymphocytes,Absolute 2350 cells/L 850-3900 Monocytes,Absolute 360 cells/L 200-950 Eosinophils,Absolute 210 cells/L 15-500 Basophils,Absolute 40 cells/L 0-200 Total Neutrophils,% 56 % 38-80 Total Lymphocytes,% 35 % 15-49 Monocytes,% 5 % 0-13 Eosinophils,% 3 % 0-8 Basophils,% 1 % 0-2 CBC W/ Diff & PLT 03/17/2011 [facility] WBC 6.7 thous/L 3.8-10.8 [address] [place] [address] [phone] RBC 4.80 mill/L 4.20-5.80 Hemoglobin 14.3 g/dL 13.2-17.1 Hematocrit 43.1 % 38.5-50.0 MCV 89.8 FL 80.0-100.0 MCH 29.8 pg 27.0-33.0 MCHC 33.1 g/dL 32.0-36.0 RDW 14.3 % 11.0-15.0 Platelet Count 222 thous/L 140-400 Neutrophils,Absolute 3880 cells/L 6622-1374 Lymphocytes,Absolute 2200 cells/L 850-3900 Monocytes,Absolute 460 cells/L 200-950 Eosinophils,Absolute 100 cells/L 15-500 Basophils,Absolute 40 cells/L 0-200 Total Neutrophils,% 58 % 38-80 Total Lymphocytes,% 33 % 15-49 Monocytes,% 7 % 0-13 Eosinophils,% 2 % 0-8 Basophils,% 1 % 0-2 Basic Metabolic Panel 03/17/2011 [facility] Sodium 140 mmol/L 135-146 [address] [place] [address] [phone] Potassium 5.1 mmol/L 3.5-5.3 Chloride 106 mmol/L 98-110 Carbon Dioxide 27 mmol/L 21-33 Calcium 9.4 mg/dL 8.6-10.2 Glucose 86 mg/dL 65-99 57 Urea Nitrogen 17 mg/dL 7-25 Creatinine 1.34 mg/dL 0.67-1.54 BUN/Creatinine Ratio 12.7 6-22 Egfr Non-Afr. [place] 53 ML/MIN/1.73M2 Low > Or=60 Egfr 62 ML/MIN/1.73M2 > Or=60 Lipid Panel 03/17/2011 [facility] Cholesterol 203 mg/dL High 125-[address] [place], [place] [id number] [phone] HDL Cholesterol 59 mg/dL > Or=40 Cholesterol/HDL Ratio 3.4 < Or=5.0 LDL Chol,Calculated 128 mg/dL <130 58 Triglycerides 78 mg/dL <150 TSH & T4,Free 03/17/2011 [facility] TSH,3RD 2.69 mIU/L 0.40-4.[address] [employer] [place], [place] [id number] [phone] T4,Free 1.3 ng/dL 0.8-1.8 Laboratory test 03/03/2010 [facility] PSA,Total 1.3 NG/ML 0.0-4.0 [address] [place] [address] [phone] CBC W/ Diff & PLT 03/03/2010 [facility] WBC 7.6 thous/L 3.8-10.[address] [place] [address] [phone] RBC 4.69 mill/L 4.20-5.80 Hemoglobin 14.3 g/dL 13.2-17.1 Hematocrit 42.1 % 38.5-50.0 MCV 89.7 FL 80.0-100.0 MCH 30.4 pg 27.0-33.0 MCHC 33.9 g/dL 32.0-36.0 RDW 14.2 % 11.0-15.0 Platelet Count 222 thous/L 140-400 Platelet Sufficiency NORMAL Normal Neutrophils,Absolute 3910 cells/L 4409-3600 Bands,Absolute DNR cells/L 0-750 Metamyelocytes,Absolute DNR cells/L 0 Myelocytes,Absolute DNR cells/L 0 Promyelocytes,Absolute DNR cells/L 0 Lymphocytes,Absolute 2820 cells/L 850-3900 Monocytes,Absolute 620 cells/L 200-950 Eosinophils,Absolute 170 cells/L 15-500 Basophils,Absolute 30 cells/L 0-200 Blast Cells,Absolute DNR cells/L 0 Nucleated RBC,Absolute DNR cells/L 0 Total Neutrophils,% 53 % 38-80 Bands,% DNR % 0-10 Metamyelocytes,% DNR % Myelocytes,% DNR % Promyelocytes,% DNR % Total Lymphocytes,% 37 % 15-49 Monocytes,% 8 % 0-13 Eosinophils,% 2 % 0-8 Basophils,% 0 % 0-2 Blasts,% DNR % Nucleated RBC DNR /100WBC 0 RBC Morphology NORMAL Anisocytosis DNR Poikilocytosis DNR Microcytosis DNR Macrocytosis DNR Polychromasia DNR Hypochromasia DNR Target Cells DNR Basophilic Stippling DNR Comment DNR Basic Metabolic Panel 03/03/2010 [facility] Sodium 141 mmol/L 135-[address] [place] [address] [phone] Potassium 4.9 mmol/L 3.5-5.3 Chloride 105 mmol/L 98-110 Carbon Dioxide 26 mmol/L 21-33 Calcium 9.5 mg/dL 8.6-10.2 Glucose 92 mg/dL 65-99 60 Urea Nitrogen 19 mg/dL 7-25 Creatinine 1.36 mg/dL 0.76-1.46 BUN/Creatinine Ratio 13.6 6-22 Egfr Non-Afr. [place] 52 ML/MIN/1.73M2 Low > Or=60 Egfr >60 ML/MIN/1.73M2 > Or=60 Lipid Panel 03/03/2010 [facility] Cholesterol 212 mg/dL High 125-[address] [place] [address] [phone] HDL Cholesterol 62 mg/dL > Or=40 Triglycerides 61 mg/dL <150 Cholesterol/HDL Ratio 3.4 < Or=5.0 LDL Chol,Calculated 138 mg/dL High <130 61 Lipid Panel 03/27/2009 [facility] Cholesterol 210 mg/dL High 125-[address] [place] [address] [phone] HDL Cholesterol 61 mg/dL > Or=40 Triglycerides 89 mg/dL <150 Cholesterol/HDL Ratio 3.4 < Or=5.0 LDL Chol,Calculated 131 mg/dL High <130 62 CBC W/ Diff & PLT 03/27/2009 [facility] WBC 6.5 thous/L 3.8-10.8 [address] [facility] [address] [phone] RBC 4.93 mill/L 4.20-5.80 Hemoglobin 14.7 g/dL 13.2-17.1 Hematocrit 42.7 % 38.5-50.0 MCV 86.7 FL 80.0-100.0 MCH 29.9 pg 27.0-33.0 MCHC 34.5 g/dL 32.0-36.0 RDW 13.9 % 11.0-15.0 Platelet Count 214 thous/L 140-400 Platelet Sufficiency NORMAL Normal Neutrophils,Absolute 3300 cells/L 1217-5721 Bands,Absolute DNR cells/L 0-750 Metamyelocytes,Absolute DNR cells/L 0 Myelocytes,Absolute DNR cells/L 0 Promyelocytes,Absolute DNR cells/L 0 Lymphocytes,Absolute 2550 cells/L 850-3900 Monocytes,Absolute 410 cells/L 200-950 Eosinophils,Absolute 150 cells/L 15-500 Basophils,Absolute 40 cells/L 0-200 Blast Cells,Absolute DNR cells/L 0 Nucleated RBC,Absolute DNR cells/L 0 Total Neutrophils,% 51 % 38-80 Bands,% DNR % 0-10 Metamyelocytes,% DNR % Myelocytes,% DNR % Promyelocytes,% DNR % Total Lymphocytes,% 40 % 15-49 Monocytes,% 6 % 0-13 Eosinophils,% 2 % 0-8 Basophils,% 1 % 0-2 Blasts,% DNR % Nucleated RBC DNR /100WBC 0 RBC Morphology NORMAL Anisocytosis DNR Poikilocytosis DNR Microcytosis DNR Macrocytosis DNR Polychromasia DNR Hypochromasia DNR Target Cells DNR Basophilic Stippling DNR Comment DNR Basic Metabolic Panel 03/27/2009 [facility] Sodium 139 mmol/L 135-[address] [place] [address] [phone] Potassium 4.0 mmol/L 3.5-5.3 Chloride 104 mmol/L 98-110 Carbon Dioxide 24 mmol/L 21-33 Calcium 9.2 mg/dL 8.6-10.2 Glucose 85 mg/dL 65-99 63 Urea Nitrogen 14 mg/dL 7-25 Creatinine 1.41 mg/dL 0.76-1.46 BUN/Creatinine Ratio 9.9 6-22 Egfr Non-Afr. [place] 50 ML/MIN/1.73M2 Low > Or=60 Egfr >60 ML/MIN/1.73M2 > Or=60 Laboratory test 03/27/2009 [facility] PSA,Total 0.8 NG/ML 0.0-4.0 [address] [place] [address] [phone] TSH,3RD Generation 4.13 mU/L 0.40-4.50 T4,Free 1.1 ng/dL 0.8-1.8 Hepatic Function 03/19/2008 [facility] Alkaline Phosphatase 64 U/L 40- 115 [address] [place] [address] [phone] Ast 16 U/L 10-35 Alt 8 U/L Low 9-60 Bilirubin,Total 0.4 mg/dL 0.2-1.2 Bilirubin,Direct 0.1 mg/dL < Or=0.2 Protein,Total 6.6 g/dL 6.2-8.3 Albumin 4.1 g/dL 3.6-5.1 Globulin,Calculated 2.5 g/dL 2.1-3.7 A/G Ratio 1.7 1.0-2.1 Basic Metabolic Panel 03/19/2008 [facility] Sodium 142 mmol/L 135-[address] [place] [address] [phone] Potassium 4.3 mmol/L 3.5-5.3 Chloride 108 mmol/L 98-110 Carbon Dioxide 29 mmol/L 21-33 Calcium 8.9 mg/dL 8.6-10.2 Glucose 83 mg/dL 65-99 65 Urea Nitrogen 17 mg/dL 7-25 Creatinine 1.23 mg/dL 0.50-1.30 BUN/Creatinine Ratio 14.1 6-22 Egfr Non-Afr. [place] 59 ML/MIN/1.73M2 Low > Or=60 Egfr >60 ML/MIN/1.73M2 > Or=60 Laboratory test 03/19/2008 [facility] PSA,Total 1.3 NG/ML 0.0-4.0 66 finding [address] [facility] [address] [phone] CBC W/ Diff & PLT 03/19/2008 [facility] WBC 7.0 thous/L 3.8-10.8 [address] [facility] [address] [phone] RBC 4.66 mill/L 4.20-5.80 Hemoglobin 13.8 g/dL 13.2-17.1 Hematocrit 41.1 % 38.5-50.0 MCV 88.2 FL 80.0-100.0 MCH 29.7 pg 27.0-33.0 MCHC 33.7 g/dL 32.0-36.0 RDW 13.6 % 11.0-15.0 Platelet Count 207 thous/L 140-400 Platelet Sufficiency NORMAL Normal Neutrophils,Absolute 3720 cells/L 7063-8957 Bands,Absolute DNR cells/L 0-750 Metamyelocytes,Absolute DNR cells/L 0 Myelocytes,Absolute DNR cells/L 0 Promyelocytes,Absolute DNR cells/L 0 Lymphocytes,Absolute 2670 cells/L 850-3900 Monocytes,Absolute 510 cells/L 200-950 Eosinophils,Absolute 110 cells/L 15-500 Basophils,Absolute 30 cells/L 0-200 Blast Cells,Absolute DNR cells/L 0 Nucleated RBC,Absolute DNR cells/L 0 Total Neutrophils,% 54 % 38-80 Bands,% DNR % 0-10 Metamyelocytes,% DNR % Myelocytes,% DNR % Promyelocytes,% DNR % Total Lymphocytes,% 38 % 15-49 Monocytes,% 7 % 0-13 Eosinophils,% 1 % 0-8 Basophils,% 0 % 0-2 Blasts,% DNR % Nucleated RBC DNR /100WBC 0 RBC Morphology NORMAL Anisocytosis DNR Poikilocytosis DNR Microcytosis DNR Macrocytosis DNR Polychromasia DNR Hypochromasia DNR Target Cells DNR Basophilic Stippling DNR Comment DNR Lipid Panel 03/19/2008 [facility] Cholesterol 189 mg/dL 125-200 [address] [facility] [place] [address] [phone] HDL Cholesterol 55 mg/dL > Or=40 Cholesterol/HDL Ratio 3.4 < Or=5.0 LDL Chol,Calculated 115 mg/dL <130 67 Triglycerides 94 mg/dL <150 CBS W/Automated 03/29/2007 [facility] White Blood 7.8 K/uL 3.4-10.[address] [place], [place] [id number] [phone] Red Blood Count 5.01 M/uL 4.20-5.80 Hemoglobin 15.6 gm/dL 12.8-17.0 Hematocrit 44.2 % 38.0-48.0 Mean Cell Volume 88.3 fL 80.0-96.0 Mean Corpuscular HGB 31.1 pg 27.0-33.0 Mean Corpuscular HGB Conc 35.2 g/dL 31.7-36.0 Platelet Count 224 K/uL 150-400 Red Cell Distri Width %CV 12.7 % 11.6-15.8 Mean Platelet Volume 8.2 fl 6.6-10.6 Neut% 61.4 % 33.0-73.0 Lymph % 28.4 % 17.0-56.0 [place] % 5.3 % 0.0-10.0 Eo% 2.1 % 0.0-5.0 Bas% 1.1 % High 0.1-1.0 Abdi% 1.7 % 0.0-4.0 Neut# 4.8 K/uL 1.8-7.0 Lymph # 2.2 K/uL 1.2-4.0 [place] # 0.4 K/uL 0.0-0.6 Eos # 0.2 K/uL 0.0-0.5 Baso # 0.1 K/uL 0.1-0.2 Abdi# 0.1 0.0-1.5 Laboratory test 03/29/2007 [facility] Prostate 1.0 ng /mL 0-4.0 [address] [place] [address] Antigen [phone] Basic Metabolic 03/29/2007 [facility] Glucose 83 mg/ dL 76-[address] [place], [place] [id number] [phone] BUN 14 mg/dL 5-23 Creatinine 1.3 mg/dL 0.5-1.4 BUN/Creat 10.7 Sodium 139 mEq/L 136-145 Potassium 4.0 mEq/L 3.5-5.1 Chloride 102 mEq/L 98-107 Carbon Dioxide 30 mEq/L 21-32 Anion Gap 11 mEq/L 8-16 Calcium 9.1 mg/dL 8.5-10.1 LDL Cholesterol 03/29/2007 [facility] Cholesterol 220 mg/dL High 120-[address] [place] [address] [phone] Triglycerides 83 mg/dL 0-210 HDL Cholesterol 60 mg/dL 32-96 LDL-Cholesterol 143 mg/dL 62-185 CBC W/ Diff & PLT 03/29/2006 [facility] WBC 7.2 thous/L 3.8-10.[address] [place] [address] [phone] RBC 5.09 mill/L 4.20-5.80 Hemoglobin 14.8 g/dL 13.2-17.1 Hematocrit 43.9 % 38.5-50.0 MCV 86.4 FL 80.0-100.0 MCH 29.0 pg 27.0-33.0 MCHC 33.6 g/dL 32.0-36.0 RDW 14.3 % 11.0-15.0 Platelet Count 232 thous/L 140-400 Platelet Sufficiency NORMAL Neutrophils,Absolute 3660 cells/L 1235-0537 Bands,Absolute DNR cells/L 0-750 Metamyelocytes,Absolute DNR cells/L 0 Myelocytes,Absolute DNR cells/L 0 Promyelocytes,Absolute DNR cells/L 0 Lymphocytes,Absolute 2720 cells/L 850-3900 Monocytes,Absolute 520 cells/L 200-950 Eosinophils,Absolute 220 cells/L 15-500 Basophils,Absolute 30 cells/L 0-200 Blast Cells,Absolute DNR cells/L 0 Nucleated RBC,Absolute DNR cells/L 0 Total Neutrophils,% 52 % 38-80 Bands,% DNR % 0-10 Metamyelocytes,% DNR % Myelocytes,% DNR % Promyelocytes,% DNR % Total Lymphocytes,% 38 % 15-49 Monocytes,% 7 % 0-13 Eosinophils,% 3 % 0-8 Basophils,% 0 % 0-2 Blasts,% DNR % Nucleated RBC DNR /100WBC 0 RBC Morphology NORMAL Anisocytosis DNR Poikilocytosis DNR Microcytosis DNR Macrocytosis DNR Polychromasia DNR Hypochromasia DNR Target Cells DNR Basophilic Stippling DNR Comment DNR Comp Metabolic Panel 03/29/2006 [facility] Sodium 140 mmol/L 135-146 [address] [place] [address] [phone] Potassium 5.1 mmol/L 3.5-5.3 Chloride 106 mmol/L 98-110 Carbon Dioxide 24 mmol/L 21-33 Calcium 9.6 mg/dL 8.5-10.4 Alkaline Phosphatase 70 U/L 20-125 Ast 20 U/L 3-50 Alt 8 U/L 3-60 Bilirubin,Total 0.6 mg/dL 0.2-1.5 Glucose 83 mg/dL 65-99 69 Urea Nitrogen 20 mg/dL 7-30 Creatinine 1.4 mg/dL 0.5-1.4 BUN/Creatinine Ratio 14.1 6-25 Protein,Total 7.2 g/dL 6.0-8.3 Albumin 4.5 g/dL 3.2-4.6 Globulin,Calculated 2.7 g/dL 2.2-4.2 A/G Ratio 1.7 0.8-2.0 GFR Estimated 54 ML/MIN/1.7 Low >59 70 Lipid Panel 03/29/2006 [facility] Cholesterol 200 mg/dL High <200 [address] [place] [address] [phone] HDL Cholesterol 50 mg/dL >40 71 Triglycerides 91 mg/dL <150 Cholesterol/HDL Ratio 4.0 <5.0 LDL Chol,Calculated 132 mg/dL High <130 72 Laboratory test 03/29/2006 [facility] PSA,Total 1.0 NG/ML 0.0-4.0 73 finding [address] [place] [address] [phone] TSH 3.64 mU/L 0.40-5.50 T4,Free 1.3 ng/dL 0.8-1.8 1 Relative blood cell counts (%) should be compared with absolute cell counts (cells/mcL). Relative counts may not be clinically meaningful if the absolute count of one or more cell type is decreased. Reference ranges for relative cell counts derived from: A Manual of Laboratory and Diagnostics Tests, 9th Ed, [employer], 2015. Pediatric Reference Intervals, 7th Ed, [employer], 2011. 2 MANUAL DIFFERENTIAL PERFORMED ACCORDING TO ESTABLISHED CRITERIA. 3 Reference range for high altitude clients: 18-30 mmol/L 4 GLUCOSE REFERENCE RANGE BASED ON FASTING SPECIMEN. 5 The upper reference limit for Creatinine is approximately 13% higher for people identified as -[place]. 6 DIZZY,RT SIDE ABD PAIN 7 URINE, CLEAN CATCH 8 FASTING 9 Reference range for high altitude clients: 18-30 mmol/L 10 GLUCOSE REFERENCE RANGE BASED ON FASTING SPECIMEN. 11 The upper reference limit for Creatinine is approximately 13% higher for people identified as -[place]. 12 Relative blood cell counts (%) should be compared with absolute cell counts (cells/mcL). Relative counts may not be clinically meaningful if the absolute count of one or more cell type is decreased. Reference ranges for relative cell counts derived from: A Manual of Laboratory and Diagnostics Tests, 9th Ed, [employer], 2015. Pediatric Reference Intervals, 7th Ed, [employer], 2011. 13 GLUCOSE REFERENCE RANGE BASED ON FASTING SPECIMEN. 14 The upper reference limit for Creatinine is approximately 13% higher for people identified as -[place]. 15 The total PSA value from this assay system is standardized against the WHO standard. The test result will be approximately 20% lower when compared to the equimolar-standardized total PSA ([employer] [place]). Comparison of serial PSA results should be interpreted with this fact in mind. This test was performed using the Siemens chemiluminescent method. Values obtained from different assay methods be used interchangeably. PSA levels, regardless of value, should not be interpreted as absolute evidence of the presence or absence of disease. 16 LDL-C is now calculated using the Urbano-Frantz calculation, which is a validated novel method providing better accuracy than the Friedewald equation in the estimation of LDL-C. Urbano SS et al.DIANA.2013;310(13):8967-9751 (http://education.[employer]Do/faq/UJI419) Desirable range <100 mg/dL for patients with CHD or Diabetes and <70 mg/dL for Diabetic patients with known heart disease 17 For patients with diabetes plus 1 major ASCVD risk factor, treating to a non-HDL-C goal of <100 mg/dL (LDL-C of <70 mg/ dL) is considered a therapeutic option. 18 GLUCOSE REFERENCE RANGE BASED ON FASTING SPECIMEN. 19 The upper reference limit for Creatinine is approximately 13% higher for people identified as -[place]. 20 LDL-C is now calculated using the Urbano-Frantz calculation, which is a validated novel method providing better accuracy than the Friedewald equation in the estimation of LDL-C. Urbano SS et al.DIANA.2013;310(19):7881-0429 (http://[employer]/faq/XDL301) Desirable range <100 mg/dL for patients with CHD or Diabetes and <70 mg/dL for Diabetic patients with known heart disease 21 For patients with diabetes plus 1 major ASCVD risk factor, treating to a non-HDL-C goal of <100 mg/dL (LDL-C of <70 mg/ dL) is considered a therapeutic option. 22 The total PSA value from this assay system is standardized against the WHO standard. The test result will be approximately 20% lower when compared to the equimolar-standardized total PSA ([place]). Comparison of serial PSA results should be interpreted with this fact in mind. This test was performed using the Siemens chemiluminescent method. Values obtained from different assay methods be used interchangeably. PSA levels, regardless of value, should not be interpreted as absolute evidence of the presence or absence of disease. 23 RESULTS VERIFIED BY REPEAT ANALYSIS. 24 MANUAL DIFFERENTIAL PERFORMED ACCORDING TO ESTABLISHED CRITERIA. 25 Relative blood cell counts (%) should be compared with absolute cell counts (cells/mcL). Relative counts may not be clinically meaningful if the absolute count of one or more cell type is decreased. Reference ranges for relative cell counts derived from: A Manual of Laboratory and Diagnostics Tests, 9th Ed, [employer], 2015. Pediatric Reference Intervals, 7th Ed, [employer], 2011. 26 PLEASE NOTE: ALTHOUGH THE REFERENCE RANGE FOR VITAMIN B12 IS 200-1100 PG/ML, IT HAS BEEN REPORTED THAT BETWEEN 5 AND 10% OF PATIENTS WITH VALUES BETWEEN 200 AND 400 PG/ML MAY EXPERIENCE NEUROPSYCHIATRIC AND HEMATOLOGIC ABNORMALITIES DUE TO OCCULT B12 DEFICIENCY; LESS THAN 1% OF PATIENTS WITH VALUES ABOVE 400 PG/ML WILL HAVE SYMPTOMS. 27 Relative blood cell counts (%) should be compared with absolute cell counts (cells/mcL). Relative counts may not be clinically meaningful if the absolute count of one or more cell type is decreased. Reference ranges for relative cell counts derived from: A Manual of Laboratory and Diagnostics Tests, 9th Ed, [employer], 2015. Pediatric Reference Intervals, 7th Ed, [employer], 2011. 28 MANUAL DIFFERENTIAL PERFORMED ACCORDING TO ESTABLISHED CRITERIA. 29 RESULTS VERIFIED BY REPEAT ANALYSIS. MANUAL DIFFERENTIAL PERFORMED ACCORDING TO ESTABLISHED CRITERIA. 30 GLUCOSE REFERENCE RANGE BASED ON FASTING SPECIMEN. 31 The upper reference limit for Creatinine is approximately 13% higher for people identified as -[place]. 32 LDL-CHOLESTEROL RISK CATEGORY* GOAL VERY HIGH (E.G. DIABETES + CVD) <70 MG/DL HIGH (DIABETICS; CHD RISK EQUIVALENTS) <100 MG/DL MODERATELY HIGH (MULTIPLE(2+) RISK FACTORS) <130 MG/DL 0 TO 1 RISK FACTORS <160 MG/DL * NCEP REPORT. CIRCULATION 2004; 110: 227-239 33 Target for non-HDL cholesterol is 30 mg/dL higher than LDL cholesterol target. 34 THIS TEST WAS PERFORMED USING THE SIEMENS CHEMILUMINESCENT METHOD. VALUES OBTAINED FROM DIFFERENT ASSAY METHODS CANNOT BE USED INTERCHANGEABLY. PSA LEVELS, REGARDLESS OF VALUE, SHOULD NOT BE INTERPRETED ABSOLUTE EVIDENCE OF THE PRESENCE OR ABSENCE OF DISEASE. 35 Relative blood cell counts (%) should be compared with absolute cell counts (cells/mcL). Relative counts may not be clinically meaningful if the absolute count of one or more cell type is decreased. Reference ranges for relative cell counts derived from: A Manual of Laboratory and Diagnostics Tests, 9th Ed, [employer], 2015. Pediatric Reference Intervals, 7th Ed, [employer], 2011. 36 THIS TEST WAS PERFORMED USING THE SIEMENS CHEMILUMINESCENT METHOD. VALUES OBTAINED FROM DIFFERENT ASSAY METHODS CANNOT BE USED INTERCHANGEABLY. PSA LEVELS, REGARDLESS OF VALUE, SHOULD NOT BE INTERPRETED ABSOLUTE EVIDENCE OF THE PRESENCE OR ABSENCE OF DISEASE. 37 According to ADA guidelines, hemoglobin A1c <7.0% represents optimal control in non- diabetic patients. Different metrics may apply to specific patient populations. Standards of Medical Care in Diabetes-2013. Diabetes Care. 2013;36:s11-s66 For the purpose of screening for the presence of diabetes: A1C VALUE INTERPRETATION <5.7% Consistent with the absence of diabetes 5.7 - 6.4% Consistent with increased risk for diabetes (prediabetes) > or=6.5% Consistent with diabetes Currently, no consensus exists regarding use of hemoglobin A1C for diagnosis of diabetes in children. 38 GLUCOSE REFERENCE RANGE BASED ON FASTING SPECIMEN. 39 The upper reference limit for Creatinine is approximately 13% higher for people identified as -[place]. 40 The reference ranges for relative (%) differential counts are derived from Pediatric Reference Intervals, 7th Ed, [facility] [employer], 2011. Relative differential counts should be interpreted in the context of absolute cell counts, particularly when absolute counts of one or more cell type are decreased. 41 GLUCOSE REFERENCE RANGE BASED ON FASTING SPECIMEN. 42 The upper reference limit for Creatinine is approximately 13% higher for people identified as -[place]. 43 LDL-CHOLESTEROL RISK CATEGORY* GOAL VERY HIGH (E.G. DIABETES + CVD) <70 MG/DL HIGH (DIABETICS; CHD RISK EQUIVALENTS) <100 MG/DL MODERATELY HIGH (MULTIPLE(2+) RISK FACTORS) <130 MG/DL 0 TO 1 RISK FACTORS <160 MG/DL * NCEP REPORT. CIRCULATION 2004; 110: 227-239 44 THIS TEST WAS PERFORMED USING THE SIEMENS CHEMILUMINESCENT METHOD. VALUES OBTAINED FROM DIFFERENT ASSAY METHODS CANNOT BE USED INTERCHANGEABLY. PSA LEVELS, REGARDLESS OF VALUE, SHOULD NOT BE INTERPRETED ABSOLUTE EVIDENCE OF THE PRESENCE OR ABSENCE OF DISEASE. 45 GLUCOSE REFERENCE RANGE BASED ON FASTING SPECIMEN. 46 The upper reference limit for Creatinine is approximately 13% higher for people identified as -[place]. 47 LDL-CHOLESTEROL RISK CATEGORY* GOAL VERY HIGH (E.G. DIABETES + CVD) <70 MG/DL HIGH (DIABETICS; CHD RISK EQUIVALENTS) <100 MG/DL MODERATELY HIGH (MULTIPLE(2+) RISK FACTORS) <130 MG/DL 0 TO 1 RISK FACTORS <160 MG/DL * NCEP REPORT. CIRCULATION 2004; 110: 227-239 48 Target for non-HDL cholesterol is 30 mg/dL higher than LDL cholesterol target. 49 GLUCOSE REFERENCE RANGE BASED ON FASTING SPECIMEN. 50 The upper reference limit for Creatinine is approximately 13% higher for people identified as -[place]. 51 LDL-CHOLESTEROL RISK CATEGORY* GOAL VERY HIGH (E.G. DIABETES + CVD) <70 MG/DL HIGH (DIABETICS; CHD RISK EQUIVALENTS) <100 MG/DL MODERATELY HIGH (MULTIPLE(2+) RISK FACTORS) <130 MG/DL 0 TO 1 RISK FACTORS <160 MG/DL * NCEP REPORT. CIRCULATION 2004; 110: 227-239 52 THIS TEST WAS PERFORMED USING THE SIEMENS CHEMILUMINESCENT METHOD. VALUES OBTAINED FROM DIFFERENT ASSAY METHODS CANNOT BE USED INTERCHANGEABLY. PSA LEVELS, REGARDLESS OF VALUE, SHOULD NOT BE INTERPRETED ABSOLUTE EVIDENCE OF THE PRESENCE OR ABSENCE OF DISEASE. 53 GLUCOSE REFERENCE RANGE BASED ON FASTING SPECIMEN. 54 The upper reference limit for Creatinine is approximately 13% higher for people identified as -[place]. 55 LDL-CHOLESTEROL RISK CATEGORY* GOAL VERY HIGH (E.G. DIABETES + CVD) <70 MG/DL HIGH (DIABETICS; CHD RISK EQUIVALENTS) <100 MG/DL MODERATELY HIGH (MULTIPLE(2+) RISK FACTORS) <130 MG/DL 0 TO 1 RISK FACTORS <160 MG/DL * NCEP REPORT. CIRCULATION 2004; 110: 227-239 56 Target for non-HDL cholesterol is 30 mg/dL higher than LDL cholesterol target. 57 GLUCOSE REFERENCE RANGE BASED ON FASTING SPECIMEN. 58 LDL-CHOLESTEROL RISK CATEGORY* GOAL VERY HIGH (E.G. DIABETES + CVD) <70 MG/DL HIGH (DIABETICS; CHD RISK EQUIVALENTS) <100 MG/DL MODERATELY HIGH (MULTIPLE(2+) RISK FACTORS) <130 MG/DL 0 TO 1 RISK FACTORS <160 MG/DL * NCEP REPORT. CIRCULATION 2004; 110: 227-239 59 PSA VALUES FROM DIFFERENT ASSAY METHODS CANNOT BE USED INTERCHANGEABLY. THIS ASSAY WAS PERFORMED USING THE [employer]AR[employer] CHEMILUMINESCENCE METHOD. SERUM PSA LEVELS SHOULD NOT BE INTERPRETED ABSOLUTE EVIDENCE OF THE PRESENCE OR ABSENCE OF DISEASE. 60 GLUCOSE REFERENCE RANGE BASED ON FASTING SPECIMEN. 61 LDL-CHOLESTEROL RISK CATEGORY* GOAL VERY HIGH (E.G. DIABETES + CVD) <70 MG/DL HIGH (DIABETICS; CHD RISK EQUIVALENTS) <100 MG/DL MODERATELY HIGH (MULTIPLE(2+) RISK FACTORS) <130 MG/DL 0 TO 1 RISK FACTORS <160 MG/DL * NCEP REPORT. CIRCULATION 2004; 110: 227-239 62 LDL-CHOLESTEROL RISK CATEGORY* GOAL VERY HIGH (E.G. DIABETES + CVD) <70 MG/DL HIGH (DIABETICS; CHD RISK EQUIVALENTS) <100 MG/DL MODERATELY HIGH (MULTIPLE(2+) RISK FACTORS) <130 MG/DL 0 TO 1 RISK FACTORS <160 MG/DL * NCEP REPORT. CIRCULATION 2004; 110: 227-239 63 GLUCOSE REFERENCE RANGE BASED ON FASTING SPECIMEN. 64 PSA VALUES FROM DIFFERENT ASSAY METHODS CANNOT BE USED INTERCHANGEABLY. THIS ASSAY WAS PERFORMED USING THE KARIS CHEMILUMINESCENCE METHOD. SERUM PSA LEVELS SHOULD NOT BE INTERPRETED ABSOLUTE EVIDENCE OF THE PRESENCE OR ABSENCE OF DISEASE. 65 GLUCOSE REFERENCE RANGE BASED ON FASTING SPECIMEN. 66 PSA VALUES FROM DIFFERENT ASSAY METHODS CANNOT BE USED INTERCHANGEABLY. THIS ASSAY WAS PERFORMED USING THE KARIS CHEMILUMINESCENCE METHOD. SERUM PSA LEVELS SHOULD NOT BE INTERPRETED ABSOLUTE EVIDENCE OF THE PRESENCE OR ABSENCE OF DISEASE. A PSA TEST, SPECIFICALLY INTENDED FOR POST PROSTATECTOMY PATIENTS, IS AVAILABLE PROSTATE SPECIFIC ANTIGEN (PSA),POST PROSTATECTOMY; TEST CODE 14732T PERFORMED AT [facility]. 67 LDL-CHOLESTEROL RISK CATEGORY* GOAL VERY HIGH (E.G. DIABETES + CVD) <70 MG/DL HIGH (DIABETICS; CHD RISK EQUIVALENTS) <100 MG/DL MODERATELY HIGH (MULTIPLE(2+) RISK FACTORS) <130 MG/DL 0 TO 1 RISK FACTORS <160 MG/DL * NCEP REPORT. CIRCULATION 2004; 110: 227-239 68 THIS ASSAY IS NOT INTENDED A CANCER SCREENING TEST. *Total_PSA methodology Axsym-MEIA, standardized to WHO 1st IS for PSA 96/670 The concentration of PSA in a given specimen, determined with assays from different manufacturers, can vary due to differences in assay methods and reagent specificity. Values obtained from different assay methods cannot be used interchangeably. 69 GLUCOSE REFERENCE RANGE BASED ON FASTING SPECIMEN. 70 THE GFR ESTIMATE IS NOT ADJUSTED FOR RACE, IF THE PATIENT'S RACE IS -[place], THE GFR ESTIMATE MUST BE MULTIPLIED BY A FACTOR OF 1.21. 71 HDL REFERENCE RANGES ADULTS (20 YEARS & OLDER) DESIRABLE: > OR=60 MG/DL HIGHER RISK: <40 MG/DL 72 LDL-CHOLESTEROL RISK CATEGORY* GOAL VERY HIGH (E.G. DIABETES + CVD) <70 MG/DL HIGH (DIABETICS; CHD RISK EQUIVALENTS) <100 MG/DL MODERATELY HIGH (MULTIPLE(2+) RISK FACTORS) <130 MG/DL 0 TO 1 RISK FACTORS <160 MG/DL * NCEP REPORT. CIRCULATION 2004; 110: 227-239 73 PSA VALUES FROM DIFFERENT ASSAY METHODS CANNOT BE USED INTERCHANGEABLY. THIS ASSAY WAS PERFORMED USING THE [employer] CHEMILUMINESCENCE METHOD. Procedures Date Code Description Status 05/22/2018 83619 Spirometry Graphic Record/Max Voluntary Vent Completed 05/22/2018 71556 EKG-Tracing & Report Completed 05/09/2018 29117 Non-Invcorrotid/Comp /Bilat Study Completed 05/08/2018 59270 Echocardiography Completed 10/03/2017 72045 EKG-Tracing & Report Completed 04/12/2016 87812 EKG-Tracing & Report Completed 04/05/2016 77303 Non-Invcorrotid/Comp /Bilat Study Completed 03/29/2016 31148 Echocardiography Completed 04/07/2015 80476 EKG-Tracing & Report Completed 04/03/2015 42638 Non-Invcorrotid/Comp /Bilat Study Completed 03/31/2015 45950 Echocardiography Completed 04/04/2014 30098 Echocardiography Completed 03/29/2014 68828 EKG-Tracing & Report Completed 03/28/2014 57181 Non-Invcorrotid/Comp /Bilat Study Completed 03/27/2013 34526 Non-Invcorrotid/Comp /Bilat Study Completed 03/26/2013 95403 Echocardiography Completed 11/06/2012 28945 Major Joint Inj Eg Shoulder Hip Knee Completed 04/06/2012 918123150 Bone Mineral Density Test Completed 04/06/2012 20822 Bone Density Completed 04/06/2012 23484 Bone Density,Vertebral Fracture Completed 03/29/2012 67811 Non-Invcorrotid/Comp /Bilat Study Completed 03/29/2012 44623 Echocardiography Completed 03/29/2012 99877 EKG-Tracing & Report Completed 03/17/2011 87884 Non-Invcorrotid/Comp /Bilat Study Completed 03/17/2011 64562 Echocardiography Completed 03/17/2011 76144 EKG-Tracing & Report Completed 03/03/2010 83941 EKG-Tracing & Report Completed 06/17/2009 09934 Non-Invcorrotid/Comp /Bilat Study Completed 06/17/2009 47609 Echocardiography Completed 03/27/2009 86892 EKG-Tracing & Report Completed 03/19/2008 02979 EKG-Tracing & Report Completed 03/29/2007 33923 EKG-Tracing & Report Completed 03/29/2006 69868 EKG-Tracing & Report Completed 03/22/2005 12243 EKG-Tracing & Report Completed Encounters Type Date Location Provider Dx Diagnosis Office Visit 08/16/2018 Main Office Eneida Madera M.D. I95.1 Orthostatic 11:45a hypotension D50.9 Iron deficiency anemia, unspecified H81.49 Vertigo of central origin, unspecified ear Office Visit 07/26/2018 1:30p Main Office Eneida Madera I95.1 Orthostatic M.D. hypotension D50.9 Iron deficiency anemia, unspecified Office Visit 06/05/2018 11:00a Main Office Eneida Madera D50.9 Iron deficiency M.D. anemia, unspecified R06.02 Shortness of breath Z23 Encounter for immunization Office Visit 04/26/2018 2:15p Main Office Rena Patel0.9 Iron deficiency M.D. anemia, unspecified I95.1 Orthostatic hypotension Office Visit 12/05/2017 10:45a Main Office Eneida Madera D50.9 Iron deficiency M.D. anemia, unspecified E78.5 Hyperlipidemia, unspecified Office Visit 10/10/2017 11:15a Main Office Eneida Madera D50.9 Iron deficiency M.D. anemia, unspecified E78.2 Mixed hyperlipidemia Office Visit 07/07/2017 10:15a Main Office Eneida Madera D50.9 Iron deficiency M.D. anemia, unspecified E78.5 Hyperlipidemia, unspecified Office Visit 01/05/2017 11:15a Main Office Eneida Madera K29.61 Other gastritis with M.D. bleeding Office Visit 12/08/2016 10:00a Main Office Rena Patel0.9 Iron deficiency M.D. anemia, unspecified K29.61 Other gastritis with bleeding Office Visit 06/09/2016 11:30a Main Office Eneida Madera, D50.9 Iron deficiency M.D. anemia, unspecified Office Visit 04/28/2016 10:45a Main Office Eneida Madera, D50.9 Iron deficiency M.D. anemia, unspecified Z23 Encounter for immunization Office Visit 02/19/2016 10:00a Main Office Eneida Madera, M15.9 Polyosteoarthritis, M.D. unspecified M72.0 Palmar fascial fibromatosis [Dupuytren] Office Visit 02/18/2016 3:15p Main Office Eneida Madera, E78.5 Hyperlipidemia, M.D. unspecified Office Visit 06/30/2015 2:00p Main Office Eneida Madera, D50.9 Iron deficiency M.D. anemia, unspecified M62.441 Contracture of muscle, right hand Z23 Encounter for immunization Office Visit 05/15/2015 10:30a Main Office Eneida Madera, 727.81 Contracture Tendon M.D. (Sheath) 280.9 Iron Deficiency Anemia Unspec Office Visit 04/14/2015 10:15a Main Office Eneida Madera, 727.81 Contracture Tendon M.D. (Sheath) 600.00 hypertrophy benign of prostate without urinary obstruction V76.41 Screening Malignant Neoplasm Rectum 272.4 Hyperlipidemia Other Unspec 281.9 Anemia Deficiency Unspec Office Visit 04/17/2014 1:30p Main Office Eneida Madera, 715.90 Degenerative Joint M.D. Disease Genlzd Or Localzd Site Unspec 727.81 Contracture Tendon (Sheath) Office Visit 04/05/2013 10:30a Main Office Eneida Madera, 272.4 Hyperlipidemia Other M.D. Unspec 715.90 Degenerative Joint Disease Genlzd Or Localzd Site Unspec Office Visit 11/06/2012 1:30p Main Office Eneida Madera M.D. 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 Unspec 424.0 Mitral Valve Disorder 840.9 Sprains & Strains Shoulder & Upper Arm Unspec V76.41 Screening Malignant Neoplasm Rectum Office Visit 02/03/2011 3:00p Main Office Eneida Madera, 883.0 Open Wound Finger(S) M.D. W/O Complication 272.4 Hyperlipidemia Other Unspec V06.5 Tetanus Diphtheria (DT) Office Visit 06/23/2010 2:30p Main Office Eneida Madera, 272.4 Hyperlipidemia Other M.D. Unspec 728.89 Muscle Disorders Other V04.81 Need For Prophylactic Vaccination & Inoculation/Influenza Office Visit 03/16/2010 11:00a Main Office Eneida Madera 272.4 Hyperlipidemia Other M.D. 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 Unspec V04.81 Need For Prophylactic Vaccination & Inoculation/Influenza Office Visit 09/10/2008 2:45p Main Office Eneida Madera, 840.9 Sprains & Strains M.D. Shoulder & Upper Arm Unspec Office Visit 04/03/2008 10:00a Main Office Eneida Madera, 272.4 Hyperlipidemia Other M.D. Unspec 727.81 Contracture Tendon (Sheath) Office Visit 04/04/2007 1:00p Main Office Eneida Madera M.D. 272.40 Hyperlipidemia 600.00 hypertrophy benign of prostate without urinary obstruction Office Visit 04/04/2006 10:30a Main Office Eneida Madera M.D. 272.40 Hyperlipidemia 600.00 hypertrophy benign of prostate without urinary obstruction Office Visit 03/30/2005 10:00a Main Office Eneida Madera M.D. 272.40 Hyperlipidemia Office Visit 03/30/2004 10:00a Main Office Eneida Madera M.D. 272.40 Hyperlipidemia Plan of Treatment Future Appointment(s):11/14/2018 8:00 am - Nurse at Main Tbrlqb0612/04/2018 10: 50 am - Jalen Madera MD at Main Zmyhyz7006/05/2018 - Eneida Madera M.D.D50.9 Iron deficiency anemia, unspecifiedNew Labs:CBC (H/H,RBC,Indices,WBC,PLT), Ordered: 06/05/18Iron & Ferritin, Ordered: 06/05/18Comments:declines hematology referral for parenteral iron and declines gi referral for colonoscopy /egd, will increase iron supplement to 2 tablets a day revisit in 6 months at his request and recheck labsFollow up:Followup:. (Follow up)R06.02 Shortness of breathComments:suspect tdue to anemia, he is orthostatic but wants to try 2 iron pills daily before anything elseZ23 Encounter for immunization
--- OUTSIDE RECORDS SUMMARY | 2018-08-31 22:36 | XMS REPORT ---
:1940 External Reference #:[id number] Author Organization [facility] Address [address], [address] [place] [address] Phone [phone] Care Team Providers Name Role Phone Eneida Madera MD Care Team Information Enamel Applier Unavailable Eneida Madera MD Primary Care Physician Unavailable Payers Type Date Identification Numbers Payment Provider Subscriber Medicare Primary Policy Number: [id number] Medicare Chema Rodrigues PayID: [id number] [address] [place] [address] [facility] Part B Policy Number: [facility] Chema Rodrigues [id number] PayID: [id number] [address] [place] [address] Problems Date Description Provider Status Onset: 05/16/2015 Contracture of joint of hand Ajit Leggett M.D. Active Onset: 04/22/2015 Contracture of palmar fascia Ajit Leggett M.D. Active Social History Type Date Description Comments Lives With Diet Healthy, Well Balanced Occupation Retired ADL's/IADL's Independent with all ADL's Cigarette Use Former Cigarette Smoker ETOH Use Denies alcohol use Daily Caffeine Consumes on average 2 cups of regular coffee per day Allergies, Adverse Reactions, Alerts Date Description Reaction Status Severity Comments 08/08/2018 Aspirin GI active 04/22/2015 NKDA inactive Medications Medication Date Status Form Strength Qnty SIG Indications Ordering Provider Meclizine HCL Active Tablets 25mg 30tabs 1 tab by R42 Sheriff, 018 mouth Brianna three Simonetta, times a MSN, MASTER CRAFTSMAN day as needed - start by using for 4 days in a row. Iron 0 Active Tablets 325(65Fe) 1 tabl by Unknown 000 mg mouth daily No Active Hx Unknown Medications 015 - 018 Vital Signs Date Vital Result Comment 08/08/2018 BP Systolic Sitting Right Arm 122 mmHg BP Diastolic Sitting Right Arm 72 mmHg Heart Rate 92 /min Respiratory Rate 18 /min Weight 154.00 lb O2 % BldC Oximetry 98 % Ora 06/11/2015 Weight 158.00 lb 05/23/2015 BP Systolic 170 mmHg BP Diastolic 92 mmHg Heart Rate 83 /min Weight 161.00 lb O2 % BldC Oximetry 98 % 05/16/2015 BP Systolic 161 mmHg BP Diastolic 91 mmHg Heart Rate 69 /min Weight 155.00 lb O2 % BldC Oximetry 97 % 04/22/2015 BP Systolic Sitting Left Arm 154 mmHg BP Diastolic Sitting Left Arm 90 mmHg Heart Rate 65 /min Height 70 inches 5'10" Weight 157.00 lb BMI (Body Mass Index) 22.5 kg/m2 BSA (Body Surface Area) 1.88 m2 O2 % BldC Oximetry 98 % 10/16/2008 Height 70 inches 5'10" Weight 170.00 lb 04/17/2008 Height 70 inches 5'10" Weight 158.00 lb Results Test Date Test Result H/L Range Note Laboratory test finding 05/22/2015 Dupuytren's Contracture See Note 1 Tissue 1 OPERATION/PROCEDURE Right ortega fasciotomy for Dupuytren's DIAGNOSIS: "RIGHT HAND, SOFT TISSUE, EXCISION": - FIBROMATOSIS COMPATIBLE WITH DUPUYTREN'S CONTRACTURE. DS/luis 1137 GROSS The specimen is received in formalin in a properly labeled container with the patient's name and accession number. The specimen is designated as "DUPUYTREN'S CONTRACTURE" and consists of multiple pieces of dempsey soft white firm tissue measuring 3.0 x 2.1 x 1.1 cm. [employer] Principal sections are submitted in a single cassette. CC/luis PRE OPERATIVE DIAGNOSIS Dupuytren's contracture right hand REVIEW CODE CODE: I Signed Electronically signed CAREN LEWIS MD [id number] Procedures Date CPT Code Description Status 08/08/2018 27833 EKG-Tracing And Report Completed 05/22/2015 26399 Fasciotomy Palmar Open Partial Completed 05/22/2015 76917 Fasciotomy Palmar Open Partial Completed Encounters Type Date Location Provider [facility] E/M Dx Office Visit 08/08/2018 2:00p Cardiology Office Brianna Sheriff, 86390 R42 MSN, MASTER CRAFTSMAN R53.83 Office Visit 11/12/2015 9:30a Orthopaedic Office Ajit Leggett M.D. 32776 M72.0 Office Visit 10/08/2015 10:00a Orthopaedic Office Ajit Leggett M.D. 92905 M72.0 M24.541 M24.542 Office Visit 09/03/2015 9:15a Orthopaedic Office Ajit Leggett M.D. 43781 M72.0 Office Visit 04/22/2015 10:15a Orthopaedic Office Ajit Leggett M.D. 15871 728.6 Plan of Care 08/08/2018 - Brianna Sheriff, MSN, [id number] Dizziness and giddinessNew Medication:Meclizine HCL 25 mgComments:See Dr. Almendarez for the ear wax. He will take the meclizine for 3-4 days and then prn. I asked him tostay well hydrated.R53.83 Other fatigueComments:No changes.AllFollow up:We will see the patient on a PRN basis from this point. We would be happy to see them again as deemed necessary.
--- OUTSIDE RECORDS SUMMARY | 2018-08-31 22:36 | XMS REPORT ---
:1940 External Reference #:[id number] Author Organization [facility] Address [address], [address] [place] [address] Phone [phone] Care Team Providers Name Role Phone Eneida Madera MD Care Team Information Wood Grinder Unavailable Eneida Madera MD Primary Care Physician Unavailable Payers Type Date Identification Numbers Payment Provider Subscriber Medicare Primary Policy Number: [id number] Medicare Chema Rodrigues PayID: [id number] [address] [place] [address] [facility] Part B Policy Number: [facility] Chema Rodrigues [id number] PayID: [id number] [address] [place] [address] Problems Date Description Provider Status Onset: 05/16/2015 [...] mouth Brianna three Simonetta, times a MSN, TREATMENT COORDINATOR day as needed - start by using [...] measuring 3.0 x 2.1 x 1.1 cm. Program Aide sections are submitted in a single cassette. CC/luis PRE OPERATIVE DIAGNOSIS Dupuytren's contracture right hand REVIEW CODE CODE: I Signed Electronically signed CAREN LEWIS MD [id number] Procedures Date CPT Code Description Status 08/08/2018 07954 EKG-Tracing And Report Completed 05/22/2015 95223 Fasciotomy Palmar Open Partial Completed 05/22/2015 49141 Fasciotomy Palmar Open Partial Completed Encounters Type Date Location Provider [facility] E/M Dx Office Visit 08/08/2018 2:00p Cardiology Office Brianna Sheriff, 812[address] R42 MSN, TREATMENT COORDINATOR R53.83 Office Visit 11/12/2015 9:30a Orthopaedic Office Ajit Leggett M.D. 67169 M72.0 Office Visit 10/08/2015 10:00a Orthopaedic Office Ajit Leggett M.D. 80781 M72.0 M24.541 M24.542 Office Visit 09/03/2015 9:15a Orthopaedic Office Ajit Leggett M.D. 47255 M72.0 Office Visit 04/22/2015 10:15a Orthopaedic Office Ajit Leggett M.D. 19664 728.6 Plan of Care 08/08/2018 - Brianna [...]
--- OUTSIDE RECORDS SUMMARY | 2018-08-31 22:36 | XMS REPORT | Continuity of Care Document ---
:1940 External Reference #:[id number] Author Name Mercedes Stewart Care Team Providers Name Role Phone Eneida Madera MD Primary Care Physician Unavailable Payers Type Date Identification Numbers Payment Provider Subscriber Effective: Policy Number: [id number] Medicare Chema Rodrigues 2006 PayID: [id number] [address] [place] [address] Policy Number: [id number] [facility] [employer] Ins. Program Chema Rodrigues PayID: [id number] [address] [place] [address] Advance Directives Description No Information Available Problems [...] Virus 3 Years Of Age And Older 79346 Given 06/05/2018 Influenza Virus Vaccine, Quadrivalent, Split, Preservative Free Q2035 Given 07/07/2017 Influenza Virus (Afluria) [id number] Split Virus 3 Years Of Age And Older Q2037 Given 04/28/2016 Influenza Vaccine [id number] (Fluvirin) 4 Years Of Age Or Older Q2037 Given 06/30/2015 Influenza Vaccine [id number] (Fluvirin) 4 Years Of Age Or Older Q2037 Given 05/09/2014 Influenza Vaccine (Fluvirin) 3 Years Of Age Or Older Q2035 Given 05/30/2013 Influenza Virus (Afluria) Split Virus 3 Years Of Age And Older Q2035 Given 05/30/2013 Influenza Virus (Afluria) [id number] Split Virus 3 Years Of Age And Older 78480 Given 04/05/2013 Zostavax Done through [facility] 08674 Given 05/18/2012 [place]neum[id number] [address] Given 05/18/2012 Pneumovax Polyvalent Inj Im Q2037 Given 05/18/2012 Influenza Vaccine [id number] (Fluvirin) 4 Years Of Age Or Older Q2037 Given 05/18/2012 Influenza Vaccine (Fluvirin) 3 Years Of Age Or Older Q2036 Given 06/08/2011 Flulaval [id number] 50826 Given 02/03/2011 Tetanus,Diphtheria,Adut/Ad [id number] ol Pertussis 14439 Given 06/23/2010 Influenza Vaccine [id number] 76292 Given 04/17/2009 Influenza Vaccine [id number] 08834 Given 11/10/1998 DT Immunization DIP/Tet (History Only) [...] [facility] WBC 10.6 thous/L 3.8-10.[address] [place] [address] [phone] RBC 4.53 mill/L 4.20-5.80 Hemoglobin 11.0 g/dL Low 13.2-17.1 Hematocrit 34.2 % Low 38.5-50.0 MCV 75.6 FL Low 80.0-100.0 MCH 24.2 pg Low 27.0-33.0 MCHC 32.0 g/dL 32.0-36.0 RDW 19.5 % High 11.0-15.0 Platelet Count 550 thous/L High 140-400 MPV 9.5 FL 7.5-12.5 Neutrophils,Absolute 5830 cells/L 3276-2231 Bands,Absolute PENDING Metamyelocytes,Absolute PENDING Myelocytes,Absolute PENDING Promyelocytes,Absolute [...] [facility] Sodium 137 mmol/L 135-[address] [facility] [place] [address] [phone] Potassium 4.6 mmol/L 3.5-5.3 Chloride 103 mmol/L 98-110 Carbon Dioxide 28 mmol/L 20-32 3 Calcium 8.9 mg/dL 8.6-10.3 Glucose 92 mg/dL 65-99 4 Urea Nitrogen (BUN) 15 mg/dL 7-25 Creatinine 1.32 mg/dL High 0.70-1.18 5 BUN/Creatinine Ratio 11.4 6-22 Egfr Non-Afr. [place] 52 ML/MIN/1.73M2 Low > Or=60 Egfr 60 ML/MIN/1.73M2 > Or=60 Ua RFX Micro & 07/25/2018 [facility] Urine Color YELLOW Yellow 6 Culture II [address] [place] [address] [phone] Urine Clarity CLEAR Clear Urine Glucose - Dipstick NEGATIVE mg/dL Negative Urine Bilirubin - Dipstick NEGATIVE Negative Urine Ketone NEGATIVE mg/dL Negative Urine Specific [place] <=1.005 Low 1.010-1.030 Urine Blood NEGATIVE Negative Urine PH 6.0 Low 6.5-7.5 Urine Protein - Dipstick NEGATIVE mg/dL Negative Urine Urobilinogen - Dipstick 1.0 E.U./dL N 0.2-1.0 Urine Nitrite - Dipstick NEGATIVE Negative Urine Leuk Esterase NEGATIVE Negative Source: URINE, CLEAN CAT <SEE NOTE> 7 Basic Metabolic Panel 05/22/2018 [facility] Sodium 143 mmol/L 135-[address] [place] [address] [phone] Potassium 5.4 mmol/L High 3.5-5.3 Chloride 110 [...] [facility] WBC 7.9 3.8-10.8 (H/H,RBC,Indices,WBC,PLT) [address] thous/[place] [address] [phone] RBC 4.42 mill/L 4.20-5.80 Hemoglobin 9.1 g/dL Low 13.2-17.1 Hematocrit 29.9 % Low 38.5-50.0 MCV 67.6 FL Low 80.0-100.0 MCH 20.5 pg Low 27.0-33.0 MCHC 30.4 g/dL Low 32.0-36.0 RDW 24.9 % High 11.0-15.0 Platelet Count 506 thous/L High 140-400 MPV 9.4 FL 7.5-12.5 Iron Deficiency 05/22/2018 [facility] Iron,Total 14 g/dL Low 50-[address] [place] [address] [phone] Tibc 393 g/dL 250-425 % Saturation 4 % Low 15-60 Ferritin 7 NG/ML Low 20-380 Hemogram 11/28/2017 [facility] WBC 8.1 thous/L 3.8-10.[address] [place] [address] [phone] RBC 4.86 mill/L 4.20-5.80 Hemoglobin 9.8 g/dL Low 13.2-17.1 Hematocrit 32.7 % Low 38.5-50.0 MCV 67.2 FL Low 80.0-100.0 MCH 20.2 pg Low 27.0-33.0 MCHC 30.1 g/dL Low 32.0-36.0 RDW 18.3 % High 11.0-15.0 Laboratory test 11/28/2017 [facility] Iron,Total 19 g/dL Low 50-[address] [place] [address] [phone] CBC W/ Diff & PLT 10/03/2017 [facility] WBC 8.4 3.8-10.[address] thous/[place] [address] [phone] RBC 4.76 mill/L 4.20-5.80 Hemoglobin 9.9 g/dL Low 13.2-17.1 Hematocrit 32.7 % Low 38.5-50.0 MCV 68.7 FL Low 80.0-100.0 MCH 20.9 pg Low 27.0-33.0 MCHC 30.4 g/dL Low 32.0-36.0 RDW 20.6 % High 11.0-15.0 Platelet Count 372 thous/L 140-400 Platelet Sufficiency PENDING MPV 9.2 FL 7.5-12.5 Neutrophils,Absolute 6060 cells/L 8857-0970 Bands,Absolute PENDING Metamyelocytes,Absolute PENDING Myelocytes,Absolute PENDING Promyelocytes,Absolute [...] [facility] Sodium 143 mmol/L 135-146 [address] [place] [address] [phone] Potassium 5.1 mmol/L 3.5-5.3 Chloride 110 mmol/L [...] 2.1 NG/ML < Or=4.0 15 finding [address] [place] [address] [phone] Lipid Panel 10/03/2017 [facility] Cholesterol 185 mg/dL <[address] [place] [address] [phone] HDL Cholesterol 65 mg/dL >40 Cholesterol/HDL Ratio 2.8 CALC <5.0 LDL Chol,Calculated 106 mg/dL High 0-100 16 Triglycerides 53 mg/dL <150 Non-HDL Cholesterol 121 mg/dL <130 17 Basic Metabolic Panel 06/30/2017 [facility] Sodium 143 mmol/L 135-[address] [place] [address] [phone] Potassium 4.9 mmol/L 3.5-5.3 Chloride 110 mmol/L 98-110 Carbon Dioxide 25 mmol/L 20-31 Calcium 8.7 mg/dL 8.6-10.3 Glucose 96 mg/dL 65-99 18 Urea Nitrogen (BUN) 14 mg/dL 7-25 Creatinine 1.35 mg/dL High 0.70-1.18 19 BUN/Creatinine Ratio 10.4 6-22 Egfr Non-Afr. [place] 51 ML/MIN/1.73M2 Low > Or=60 Egfr 59 ML/MIN/1.73M2 Low > Or=60 Lipid Panel 06/30/2017 [facility] Cholesterol 189 mg/dL <199 6 [facility] [address] [phone] HDL Cholesterol 63 mg/dL >40 Cholesterol/HDL Ratio 3.0 CALC <5.0 LDL Chol,Calculated 112 mg/dL High <100 20 Triglycerides 48 mg/dL <150 Non-HDL Cholesterol 126 mg/dL <130 21 Laboratory test 06/30/2017 [facility] PSA,Total 2.1 NG/ML < Or=4.0 [address] [facility] [place] [address] [phone] CBC W/ Diff & PLT 06/30/2017 [facility] WBC 7.4 thous/L 3.8-10.[address] [facility] [place] [address] [phone] RBC 4.35 mill/L 4.20-5.80 Hemoglobin 8.1 g/dL Low 13.2-17.1 Hematocrit 27.9 % Low 38.5-50.0 MCV 64.1 FL Low 80.0-100.0 MCH 18.6 pg Low 27.0-33.0 MCHC 29.0 g/dL Low 32.0-36.0 23 RDW 18.7 % High 11.0-15.0 Platelet Count 441 thous/L High 140-400 Platelet Sufficiency PENDING MPV 9.1 FL 7.5-12.5 Neutrophils,Absolute 5180 cells/L 6277-1493 Bands,Absolute PENDING Metamyelocytes,Absolute PENDING Myelocytes,Absolute PENDING Promyelocytes,Absolute [...] Lab Iron,Total 24 g/dL Low 50-180 [address] [place] [address] [phone] Ferritin 9 NG/ML Low 20-380 CBC W/ Diff & PLT 12/01/2016 [facility] WBC 8.8 thous/L 3.8-10.8 [address] [place] [address] [phone] RBC 4.96 mill/L 4.20-5.80 Hemoglobin 11.2 g/dL Low 13.2-17.1 Hematocrit 37.4 % Low 38.5-50.0 MCV 75.3 FL Low 80.0-100.0 MCH 22.6 pg Low 27.0-33.0 MCHC 29.9 g/dL Low 32.0-36.0 RDW 19.0 % High 11.0-15.0 Platelet Count 360 thous/L 140-400 Platelet Sufficiency NORMAL Normal MPV 9.5 FL 7.5-12.5 Neutrophils,Absolute 5780 cells/L 3179-6847 Bands,Absolute PENDING Metamyelocytes,Absolute PENDING Myelocytes,Absolute PENDING Promyelocytes,Absolute [...] Lab Iron,Total 19 g/dL Low 50-[address] [place], [place] [address] [phone] Ferritin 8 NG/ML Low 20-380 Laboratory test 06/02/2016 [facility] Vitamin 327 pg/mL 200-1100 [address] B12,[place] [address] [phone] CBC W/ Diff & 06/02/2016 [facility] WBC 7.2 3.8-10.[address] thous[address]L [place], [place] [id number] [phone] RBC 4.63 mill/L 4.20-5.80 Hemoglobin 8.9 g/dL Low 13.2-17.1 Hematocrit 29.8 % Low 38.5-50.0 MCV 64.4 FL Low 80.0-100.0 MCH 19.1 pg Low 27.0-33.0 MCHC 29.7 g/dL Low 32.0-36.0 RDW 25.0 % High 11.0-15.0 Platelet Count 356 thous/L 140-400 Platelet Sufficiency PENDING MPV 8.9 FL 7.5-11.5 Neutrophils,Absolute 4176 cells/L 4748-7253 Bands,Absolute PENDING Metamyelocytes,Absolute PENDING Myelocytes,Absolute PENDING Promyelocytes,Absolute [...] [facility] WBC 7.1 thous/L 3.8-10.8 [address] [place], [place] [id number] [phone] RBC 4.47 mill/L 4.20-5.80 Hemoglobin 7.8 g/dL Low 13.2-17.1 Hematocrit 27.2 % Low 38.5-50.0 MCV 60.9 FL Low 80.0-100.0 MCH 17.5 pg Low 27.0-33.0 MCHC 28.8 g/dL Low 32.0-36.0 RDW 20.8 % High 11.0-15.0 Platelet Count 322 thous/L 140-400 Platelet Sufficiency NORMAL Normal MPV 9.0 FL 7.5-11.5 Neutrophils,Absolute 3550 cells/L 1073-0601 Bands,Absolute PENDING Metamyelocytes,Absolute PENDING Myelocytes,Absolute PENDING Promyelocytes,Absolute [...] Iron,Total 17 g/dL Low 50-[address] [place] [address] [phone] BMP W/O Egfr 04/12/2016 [facility] Sodium 141 mmol/L 135-[address] [place] [address] [phone] Potassium 4.2 mmol/L 3.5-5.3 Chloride 109 mmol/L 98-110 Carbon Dioxide 24 mmol/L 20-31 Calcium 8.6 mg/dL 8.6-10.3 Glucose 96 mg/dL 65-99 30 Urea Nitrogen 15 mg/dL 7-25 Creatinine 1.46 mg/dL High 0.70-1.18 31 BUN/Creatinine Ratio 10.1 6-22 Lipid Panel 04/12/2016 [facility] Cholesterol 180 mg/dL 125-[address] [place] [address] [phone] HDL Cholesterol 58 mg/dL > Or=40 Cholesterol/HDL Ratio 3.1 < Or=5.0 LDL Chol,Calculated 109 mg/dL <130 32 Triglycerides 65 mg/dL <150 Non-HDL Cholesterol 121 mg/dL 33 Laboratory test 04/12/2016 [facility] PSA,Total 1.6 NG/ML < Or=4.0 [address] [place] [address] [phone] Laboratory test 06/26/2015 [facility] Iron,Total 17 g/dL Low 50-[address] [place] [address] [phone] CBC W/ Diff & PLT 06/26/2015 [facility] WBC 7.0 3.8-10.[address] thous/[place] [address] [phone] RBC 4.19 mill/L Low 4.20-5.80 Hemoglobin 8.8 g/dL Low 13.2-17.1 Hematocrit 28.5 % Low 38.5-50.0 MCV 68.1 FL Low 80.0-100.0 MCH 21.1 pg Low 27.0-33.0 MCHC 31.0 g/dL Low 32.0-36.0 RDW 18.0 % High 11.0-15.0 Platelet Count 337 thous/L 140-400 Platelet Sufficiency PENDING MPV 8.9 FL 7.5-11.5 Neutrophils,Absolute 4360 cells/L 8752-3126 Bands,Absolute PENDING Metamyelocytes,Absolute PENDING Myelocytes,Absolute PENDING Promyelocytes,Absolute [...] PSA,Total 1.4 NG/ML 0.0-4.0 [address] [place] [address] [phone] Hemoglobin A1c 5.6 % 0.0-5.6 37 Iron & Ferritin 05/06/2015 [facility] Iron,Total 20 g/dL Low 50-[address] [place] [address] [phone] Ferritin 4 NG/ML Low 20-380 Laboratory test 05/06/2015 [facility] Vitamin 465 pg/mL 200-[address] B12,[place] [address] [phone] BMP W/O Egfr 05/06/2015 [facility] Sodium 143 mmol/L 135-[address] [place] [address] [phone] Potassium 4.0 mmol/L 3.5-5.3 Chloride 108 mmol/L 98-110 Carbon Dioxide 22 mmol/L 19-30 Calcium 9.3 mg/dL 8.6-10.3 Glucose 99 mg/dL 65-99 38 Urea Nitrogen 22 mg/dL 7-25 Creatinine 1.53 mg/dL High 0.70-1.18 39 BUN/Creatinine Ratio 14.1 6-22 CBC W/ Diff & PLT 05/06/2015 [facility] WBC 7.6 thous/L 3.8-10.[address] [facility] [place] [address] [phone] RBC 4.43 mill/L 4.20-5.80 Hemoglobin 9.5 g/dL Low 13.2-17.1 Hematocrit 31.4 % Low 38.5-50.0 MCV 70.9 FL Low 80.0-100.0 MCH 21.5 pg Low 27.0-33.0 MCHC 30.3 g/dL Low 32.0-36.0 RDW 17.9 % High 11.0-15.0 Platelet Count 314 thous/L 140-400 Platelet Sufficiency PENDING MPV 9.7 FL 7.5-11.5 Neutrophils,Absolute 4190 cells/L [phone] Bands,Absolute PENDING Metamyelocytes,Absolute PENDING Myelocytes,Absolute PENDING Promyelocytes,Absolute [...] [facility] WBC 6.8 thous/L 3.8-10.8 [address] [place] [address] [phone] RBC 4.34 mill/L 4.20-5.80 Hemoglobin 9.4 g/dL Low 13.2-17.1 Hematocrit 31.1 % Low 38.5-50.0 MCV 71.5 FL Low 80.0-100.0 MCH 21.8 pg Low 27.0-33.0 MCHC 30.4 g/dL Low 32.0-36.0 RDW 17.6 % High 11.0-15.0 Platelet Count 293 thous/L 140-400 Platelet Sufficiency PENDING MPV 9.4 FL 7.5-11.5 Neutrophils,Absolute 3970 cells/L 3172-9637 Bands,Absolute PENDING Metamyelocytes,Absolute PENDING Myelocytes,Absolute PENDING Promyelocytes,Absolute [...] [facility] Sodium 142 mmol/L 135-146 [address] [place] [address] [phone] Potassium 4.6 mmol/L 3.5-5.3 Chloride 108 mmol/L 98-110 Carbon Dioxide 25 mmol/L 19-30 Calcium 9.3 mg/dL 8.6-10.3 Glucose 86 mg/dL 65-99 41 Urea Nitrogen 19 mg/dL 7-25 Creatinine 1.45 mg/dL High 0.70-1.18 42 BUN/Creatinine Ratio 12.8 6-22 Laboratory test 04/07/2015 [facility] Direct LDL 130 mg/dL High <130 43 finding [address] [place], [place] [id number] [phone] PSA,Total 1.5 NG/ML 0.0-4.0 44 CBC W/ Diff & PLT 03/29/2014 [facility] WBC 7.7 thous/L 3.8-10.[address] [place] [address] [phone] RBC 4.75 mill/L 4.20-5.80 Hemoglobin 13.6 g/dL 13.2-17.1 Hematocrit 40.6 % 38.5-50.0 MCV 85.4 FL 80.0-100.0 MCH 28.7 pg 27.0-33.0 MCHC 33.7 g/dL 32.0-36.0 RDW 14.2 % 11.0-15.0 Platelet Count 231 thous/L 140-400 Platelet Sufficiency PENDING Neutrophils,Absolute 4000 cells/L 6006-9331 Bands,Absolute PENDING Metamyelocytes,Absolute PENDING Myelocytes,Absolute PENDING Promyelocytes,Absolute [...] [facility] Sodium 141 mmol/L 135-146 [address] [place] [address] [phone] Potassium 5.0 mmol/L 3.5-5.3 Chloride 105 mmol/L 98-110 Carbon Dioxide 25 mmol/L 19-30 Calcium 9.6 mg/dL 8.6-10.3 Glucose 89 mg/dL 65-99 45 Urea Nitrogen 16 mg/dL 7-25 Creatinine 1.43 mg/dL High 0.70-1.18 46 BUN/Creatinine Ratio 11.5 6-22 Lipid Panel 03/29/2014 [facility] Cholesterol 225 mg/dL High 125-200 [address] [place] [address] [phone] HDL Cholesterol 64 mg/dL > Or=40 Cholesterol/HDL Ratio 3.5 < Or=5.0 LDL Chol,Calculated 146 mg/dL High <130 47 Triglycerides 77 mg/dL <150 Non-HDL Cholesterol 161 mg/dL High 48 BMP W/O Egfr 03/26/2013 [facility] Sodium 138 mmol/L 135-146 [address] [place] [address] [phone] Potassium 4.6 mmol/L 3.5-5.3 Chloride 106 mmol/L 98-110 Carbon Dioxide 25 mmol/L 19-30 Calcium 9.3 mg/dL 8.6-10.3 Glucose 79 mg/dL 65-99 49 Urea Nitrogen 20 mg/dL 7-25 Creatinine 1.44 mg/dL High 0.70-1.18 50 BUN/Creatinine Ratio 13.7 6-22 CBC W/ Diff & PLT 03/26/2013 [facility] WBC 7.6 thous/L 3.8-10.8 [address] [place] [address] [phone] RBC 5.24 mill/L 4.20-5.80 Hemoglobin 15.1 g/dL 13.2-17.1 Hematocrit 45.5 % 38.5-50.0 MCV 86.9 FL 80.0-100.0 MCH 28.8 pg 27.0-33.0 MCHC 33.2 g/dL 32.0-36.0 RDW 14.9 % 11.0-15.0 Platelet Count 229 thous/L 140-400 Neutrophils,Absolute 4240 cells/L 0124-1319 Lymphocytes,Absolute 2700 cells/L 850-3900 Monocytes,Absolute 400 cells/L 200-950 Eosinophils,Absolute 180 cells/L 15-500 Basophils,Absolute 50 cells/L 0-200 Total Neutrophils,% 56 % 38-80 Total Lymphocytes,% 36 % 15-49 Monocytes,% 5 % 0-13 Eosinophils,% 2 % 0-8 Basophils,% 1 % 0-2 Laboratory test 03/26/2013 [facility] Direct LDL 138 mg/dL High <130 51 finding [address] [place] [address] [phone] Laboratory test 03/29/2012 [facility] PSA,Total 1.7 NG/ML 0.0-4.0 [address] [facility] [place] [address] [phone] Basic Metabolic 03/29/2012 [facility] Sodium 141 mmol/L 135-[address] [place] [address] [phone] Potassium 4.4 mmol/L 3.5-5.3 Chloride 107 mmol/L 98-110 Carbon Dioxide 25 mmol/L 21-33 Calcium 9.1 mg/dL 8.6-10.3 Glucose 84 mg/dL 65-99 53 Urea Nitrogen 18 mg/dL 7-25 Creatinine 1.37 mg/dL High 0.70-1.18 54 BUN/Creatinine Ratio 13.1 6-22 Egfr Non-Afr. [place] 52 ML/MIN/1.73M2 Low > Or=60 Egfr 60 ML/MIN/1.73M2 > Or=60 Lipid Panel 03/29/2012 [facility] Cholesterol 206 mg/dL High 125-[address] [place] [address] [phone] HDL Cholesterol 55 mg/dL > Or=40 Cholesterol/HDL Ratio 3.7 < Or=5.0 LDL Chol,Calculated 140 mg/dL High <130 55 Triglycerides 54 mg/dL <150 Non-HDL Cholesterol 151 mg/dL 56 CBC W/ Diff & PLT 03/29/2012 [facility] WBC 6.7 thous/L 3.8-10.[address] [facility] [place] [address] [phone] RBC 4.78 mill/L 4.20-5.80 Hemoglobin 14.1 g/dL 13.2-17.1 Hematocrit 42.7 % 38.5-50.0 MCV 89.4 FL 80.0-100.0 MCH 29.6 pg 27.0-33.0 MCHC 33.1 g/dL 32.0-36.0 RDW 14.4 % 11.0-15.0 Platelet Count 219 thous/L 140-400 Neutrophils,Absolute 3710 cells/L 6654-1077 Lymphocytes,Absolute 2350 cells/L 850-3900 Monocytes,Absolute 360 cells/L 200-950 Eosinophils,Absolute 210 cells/L 15-500 Basophils,Absolute 40 cells/L 0-200 Total Neutrophils,% 56 % 38-80 Total Lymphocytes,% 35 % 15-49 Monocytes,% 5 % 0-13 Eosinophils,% 3 % 0-8 Basophils,% 1 % 0-2 CBC W/ Diff & PLT 03/17/2011 [facility] WBC 6.7 thous/L 3.8-10.8 [address] [place] [address] [phone] RBC 4.80 mill/L 4.20-5.80 Hemoglobin 14.3 g/dL 13.2-17.1 Hematocrit 43.1 % 38.5-50.0 MCV 89.8 FL 80.0-100.0 MCH 29.8 pg 27.0-33.0 MCHC 33.1 g/dL 32.0-36.0 RDW 14.3 % 11.0-15.0 Platelet Count 222 thous/L 140-400 Neutrophils,Absolute 3880 cells/L 4253-2307 Lymphocytes,Absolute 2200 cells/L 850-3900 Monocytes,Absolute 460 cells/L 200-950 Eosinophils,Absolute 100 cells/L 15-500 Basophils,Absolute 40 cells/L 0-200 Total Neutrophils,% 58 % 38-80 Total Lymphocytes,% 33 % 15-49 Monocytes,% 7 % 0-13 Eosinophils,% 2 % 0-8 Basophils,% 1 % 0-2 Basic Metabolic Panel 03/17/2011 [facility] Sodium 140 mmol/L 135-146 [address] [place] [address] [phone] Potassium 5.1 mmol/L 3.5-5.3 Chloride 106 mmol/L 98-110 Carbon Dioxide 27 mmol/L 21-33 Calcium 9.4 mg/dL 8.6-10.2 Glucose 86 mg/dL 65-99 57 Urea Nitrogen 17 mg/dL 7-25 Creatinine 1.34 mg/dL 0.67-1.54 BUN/Creatinine Ratio 12.7 6-22 Egfr Non-Afr. [place] 53 ML/MIN/1.73M2 Low > Or=60 Egfr 62 ML/MIN/1.73M2 > Or=60 Lipid Panel 03/17/2011 [facility] Cholesterol 203 mg/dL High 125-[address] [place], [place] [address] [phone] HDL Cholesterol 59 mg/dL > Or=40 Cholesterol/HDL Ratio 3.4 < Or=5.0 LDL Chol,Calculated 128 mg/dL <130 58 Triglycerides 78 mg/dL <150 TSH & T4,Free 03/17/2011 [facility] TSH,3RD 2.69 mIU/L 0.40-4.[address] [place] [address] [phone] T4,Free 1.3 ng/dL 0.8-1.8 Laboratory test 03/03/2010 [facility] PSA,Total 1.3 NG/ML 0.0-4.0 [address] [place] [address] [phone] CBC W/ Diff & PLT 03/03/2010 [facility] WBC 7.6 thous/L 3.8-10.[address] [place] [address] [phone] RBC 4.69 mill/L 4.20-5.80 Hemoglobin 14.3 g/dL 13.2-17.1 Hematocrit 42.1 % 38.5-50.0 MCV 89.7 FL 80.0-100.0 MCH 30.4 pg 27.0-33.0 MCHC 33.9 g/dL 32.0-36.0 RDW 14.2 % 11.0-15.0 Platelet Count 222 thous/L 140-400 Platelet Sufficiency NORMAL Normal Neutrophils,Absolute 3910 cells/L 4196-7026 Bands,Absolute DNR cells/L 0-750 Metamyelocytes,Absolute DNR cells/L [...] [facility] Sodium 141 mmol/L 135-[address] [place] [address] [phone] Potassium 4.9 mmol/L 3.5-5.3 Chloride 105 mmol/L 98-110 Carbon Dioxide 26 mmol/L 21-33 Calcium 9.5 mg/dL 8.6-10.2 Glucose 92 mg/dL 65-99 60 Urea Nitrogen 19 mg/dL 7-25 Creatinine 1.36 mg/dL 0.76-1.46 BUN/Creatinine Ratio 13.6 6-22 Egfr Non-Afr. [place] 52 ML/MIN/1.73M2 Low > Or=60 Egfr >60 ML/MIN/1.73M2 > Or=60 Lipid Panel 03/03/2010 [facility] Cholesterol 212 mg/dL High 125-[address] [place] [address] [phone] HDL Cholesterol 62 mg/dL > Or=40 Triglycerides 61 mg/dL <150 Cholesterol/HDL Ratio 3.4 < Or=5.0 LDL Chol,Calculated 138 mg/dL High <130 61 Lipid Panel 03/27/2009 [facility] Cholesterol 210 mg/dL High 125-[address] [place] [address] [phone] HDL Cholesterol 61 mg/dL > Or=40 Triglycerides 89 mg/dL <150 Cholesterol/HDL Ratio 3.4 < Or=5.0 LDL Chol,Calculated 131 mg/dL High <130 62 CBC W/ Diff & PLT 03/27/2009 [facility] WBC 6.5 thous/L 3.8-10.8 [address] [place], [place] [address] [phone] RBC 4.93 mill/L 4.20-5.80 Hemoglobin 14.7 g/dL 13.2-17.1 Hematocrit 42.7 % 38.5-50.0 MCV 86.7 FL 80.0-100.0 MCH 29.9 pg 27.0-33.0 MCHC 34.5 g/dL 32.0-36.0 RDW 13.9 % 11.0-15.0 Platelet Count 214 thous/L 140-400 Platelet Sufficiency NORMAL Normal Neutrophils,Absolute 3300 cells/L 6359-3891 Bands,Absolute DNR cells/L 0-750 Metamyelocytes,Absolute DNR cells/L [...] [facility] Sodium 139 mmol/L 135-146 [address] [place] [address] [phone] Potassium 4.0 mmol/L 3.5-5.3 Chloride 104 mmol/L 98-110 Carbon Dioxide 24 mmol/L 21-33 Calcium 9.2 mg/dL 8.6-10.2 Glucose 85 mg/dL 65-99 63 Urea Nitrogen 14 mg/dL 7-25 Creatinine 1.41 mg/dL 0.76-1.46 BUN/Creatinine Ratio 9.9 6-22 Egfr Non-Afr. [place] 50 ML/MIN/1.73M2 Low > Or=60 Egfr >60 ML/MIN/1.73M2 > Or=60 Laboratory test 03/27/2009 [facility] PSA,Total 0.8 NG/ML 0.0-4.0 [address] [place] [address] [phone] TSH,3RD Generation 4.13 mU/L 0.40-4.50 T4,Free 1.1 ng/dL 0.8-1.8 Hepatic Function 03/19/2008 [facility] Alkaline Phosphatase 64 U/L 40- [address] [place] [address] [phone] Ast 16 U/L 10-35 Alt 8 U/L Low 9-60 Bilirubin,Total 0.4 mg/dL 0.2-1.2 Bilirubin,Direct 0.1 mg/dL < Or=0.2 Protein,Total 6.6 g/dL 6.2-8.3 Albumin 4.1 g/dL 3.6-5.1 Globulin,Calculated 2.5 g/dL 2.1-3.7 A/G Ratio 1.7 1.0-2.1 Basic Metabolic Panel 03/19/2008 [facility] Sodium 142 mmol/L 135-[address] [place] [address] [phone] Potassium 4.3 mmol/L 3.5-5.3 Chloride 108 mmol/L 98-110 Carbon Dioxide 29 mmol/L 21-33 Calcium 8.9 mg/dL 8.6-10.2 Glucose 83 mg/dL 65-99 65 Urea Nitrogen 17 mg/dL 7-25 Creatinine 1.23 mg/dL 0.50-1.30 BUN/Creatinine Ratio 14.1 6-22 Egfr Non-Afr. [place] 59 ML/MIN/1.73M2 Low > Or=60 Egfr >60 ML/MIN/1.73M2 > Or=60 Laboratory test 03/19/2008 [facility] PSA,Total 1.3 NG/ML 0.0-4.0 66 finding [address] [place] [address] [phone] CBC W/ Diff & PLT 03/19/2008 [facility] WBC 7.0 thous/L 3.8-10.8 [address] [place] [address] [phone] RBC 4.66 mill/L 4.20-5.80 Hemoglobin 13.8 g/dL 13.2-17.1 Hematocrit 41.1 % 38.5-50.0 MCV 88.2 FL 80.0-100.0 MCH 29.7 pg 27.0-33.0 MCHC 33.7 g/dL 32.0-36.0 RDW 13.6 % 11.0-15.0 Platelet Count 207 thous/L 140-400 Platelet Sufficiency NORMAL Normal Neutrophils,Absolute 3720 cells/L [phone] Bands,Absolute DNR cells/L 0-750 Metamyelocytes,Absolute DNR cells/L [...] [facility] Cholesterol 189 mg/dL 125-200 [address] [facility] [place] [address] [phone] HDL Cholesterol 55 mg/dL > Or=40 Cholesterol/HDL Ratio 3.4 < Or=5.0 LDL Chol,Calculated 115 mg/dL <130 67 Triglycerides 94 mg/dL <150 CBS W/Automated 03/29/2007 [facility] White Blood 7.8 K/uL 3.4-10.[address] Count [place], [place] [id number] [phone] Red Blood Count 5.01 M/uL 4.20-5.80 Hemoglobin 15.6 gm/dL 12.8-17.0 Hematocrit 44.2 % 38.0-48.0 Mean Cell Volume 88.3 fL 80.0-96.0 Mean Corpuscular HGB 31.1 pg 27.0-33.0 Mean Corpuscular HGB Conc 35.2 g/dL 31.7-36.0 Platelet Count 224 K/uL 150-400 Red Cell Distri Width %CV 12.7 % 11.6-15.8 Mean Platelet Volume 8.2 fl 6.6-10.6 Neut% 61.4 % 33.0-73.0 Lymph % 28.4 % 17.0-56.0 Hill % 5.3 % 0.0-10.0 Eo% 2.1 % 0.0-5.0 Bas% 1.1 % High 0.1-1.0 Abdi% 1.7 % 0.0-4.0 Neut# 4.8 K/uL 1.8-7.0 Lymph # 2.2 K/uL 1.2-4.0 Hill # 0.4 K/uL 0.0-0.6 Eos # 0.2 K/uL 0.0-0.5 Baso # 0.1 K/uL 0.1-0.2 Abdi# 0.1 0.0-1.5 Laboratory test 03/29/2007 [facility] Prostate 1.0 ng /mL 0-4.0 [address] [place] [place] [address] Antigen [phone] Basic Metabolic 03/29/2007 [facility] Glucose 83 mg/ dL 76-[address] [place], [place] [id number] [phone] BUN 14 mg/dL 5-23 Creatinine 1.3 mg/dL 0.5-1.4 BUN/Creat 10.7 Sodium 139 mEq/L 136-145 Potassium 4.0 mEq/L 3.5-5.1 Chloride 102 mEq/L 98-107 Carbon Dioxide 30 mEq/L 21-32 Anion Gap 11 mEq/L 8-16 Calcium 9.1 mg/dL 8.5-10.1 LDL Cholesterol 03/29/2007 [facility] Cholesterol 220 mg/dL High 120-[address] [place] [address] [phone] Triglycerides 83 mg/dL 0-210 HDL Cholesterol 60 mg/dL 32-96 LDL-Cholesterol 143 mg/dL 62-185 CBC W/ Diff & PLT 03/29/2006 [facility] WBC 7.2 thous/L 3.8-10.[address] [place] [address] [phone] RBC 5.09 mill/L 4.20-5.80 Hemoglobin 14.8 g/dL 13.2-17.1 Hematocrit 43.9 % 38.5-50.0 MCV 86.4 FL 80.0-100.0 MCH 29.0 pg 27.0-33.0 MCHC 33.6 g/dL 32.0-36.0 RDW 14.3 % 11.0-15.0 Platelet Count 232 thous/L 140-400 Platelet Sufficiency NORMAL Neutrophils,Absolute 3660 cells/L [phone] Bands,Absolute DNR cells/L 0-750 Metamyelocytes,Absolute DNR cells/L [...] [facility] Sodium 140 mmol/L 135-146 [address] [place] [address] [phone] Potassium 5.1 mmol/L 3.5-5.3 Chloride 106 mmol/L [...] Lab Cholesterol 200 mg/dL High <200 [address] [place] [address] [phone] HDL Cholesterol 50 mg/dL >40 71 Triglycerides 91 mg/dL <150 Cholesterol/HDL Ratio 4.0 <5.0 LDL Chol,Calculated 132 mg/dL High <130 72 Laboratory test 03/29/2006 [facility] PSA,Total 1.0 NG/ML 0.0-4.0 73 finding [address] [place] [address] [phone] TSH 3.64 mU/L 0.40-5.50 T4,Free 1.3 ng/dL [...] compared to the equimolar-standardized total PSA ([place]). Comparison of serial PSA results should be [...] the estimation of LDL-C. Urbano SS et al.DIANA.2013;310(56):3751-1170 (http://education.[employer]/faq/DLY279) Desirable range <100 mg/dL for patients with [...] 20 LDL-C is now calculated using the Urbano-Landry calculation, which is a validated novel method providing better accuracy than the Friedewald equation in the estimation of LDL-C. Urbano SS et al.DIANA.2013;310(19):3621-6277 (http://education.[employer]/faq/ZLL742) Desirable range <100 mg/dL for patients with [...] compared to the equimolar-standardized total PSA ([place]). Comparison of serial PSA results should be [...] Cornejo, 2015. Pediatric Reference Intervals, 7th Ed, [employer], 2011. 26 PLEASE NOTE: ALTHOUGH THE [...] Reference Intervals, 7th Ed, [employer], 2011. 36 THIS TEST WAS PERFORMED [...] derived from Pediatric Reference Intervals, 7th Ed, [facility] [employer], 2011. Relative differential counts should be [...] PROSTATE SPECIFIC ANTIGEN (PSA),POST PROSTATECTOMY; TEST CODE 28308U PERFORMED AT [facility] [employer] [facility]. 67 LDL-CHOLESTEROL RISK CATEGORY* GOAL VERY HIGH [...] FOR RACE, IF THE PATIENT'S RACE IS -[place], THE GFR ESTIMATE MUST BE MULTIPLIED BY [...] INTERCHANGEABLY. THIS ASSAY WAS PERFORMED USING THE 7Road CHEMILUMINESCENCE METHOD. Procedures Date Code Description Status 05/22/2018 16697 Spirometry Graphic Record/Max Voluntary Vent Completed 05/22/2018 68118 EKG-Tracing & Report Completed 05/09/2018 50305 Non-Invcorrotid/Comp /Bilat Study Completed 05/08/2018 16058 Echocardiography Completed 10/03/2017 05457 EKG-Tracing & Report Completed 04/12/2016 13490 EKG-Tracing & Report Completed 04/05/2016 37304 Non-Invcorrotid/Comp /Bilat Study Completed 03/29/2016 39710 Echocardiography Completed 04/07/2015 32640 EKG-Tracing & Report Completed 04/03/2015 06485 Non-Invcorrotid/Comp /Bilat Study Completed 03/31/2015 04030 Echocardiography Completed 04/04/2014 12698 Echocardiography Completed 03/29/2014 13158 EKG-Tracing & Report Completed 03/28/2014 96713 Non-Invcorrotid/Comp /Bilat Study Completed 03/27/2013 61452 Non-Invcorrotid/Comp /Bilat Study Completed 03/26/2013 68223 Echocardiography Completed 11/06/2012 40024 Major Joint Inj Eg Shoulder Hip Knee Completed 04/06/2012 [id number] Bone Mineral Density Test Completed 04/06/2012 92366 Bone Density Completed 04/06/2012 49918 Bone Density,Vertebral Fracture Completed 03/29/2012 12598 Non-Invcorrotid/Comp /Bilat Study Completed 03/29/2012 80370 Echocardiography Completed 03/29/2012 28867 EKG-Tracing & Report Completed 03/17/2011 22734 Non-Invcorrotid/Comp /Bilat Study Completed 03/17/2011 08855 Echocardiography Completed 03/17/2011 51040 EKG-Tracing & Report Completed 03/03/2010 31508 EKG-Tracing & Report Completed 06/17/2009 92291 Non-Invcorrotid/Comp /Bilat Study Completed 06/17/2009 90349 Echocardiography Completed 03/27/2009 43300 EKG-Tracing & Report Completed 03/19/2008 41064 EKG-Tracing & Report Completed 03/29/2007 06469 EKG-Tracing & Report Completed 03/29/2006 78130 EKG-Tracing & Report Completed 03/22/2005 14104 EKG-Tracing & Report Completed Encounters Type Date [...] Office Visit 04/03/2008 10:00a Main Office Eneida Madera 272.4 Hyperlipidemia Other M.D. Unspec 727.81 Contracture [...] Appointment(s):11/14/2018 8:00 am - Nurse at Main [place]2412/04/2018 10: 50 am - Jalen Madera MD at Main [id number]/05/2018 - Eneida Madera M.D.D50.9 Iron deficiency anemia, [...]
[2018-09-01 05:59] VITALS: BP 132/77
== END 2018-09-01 07:07 | disposition home or self-care (01) ==
LOC: ED 21:50
DX: N47.2 Paraphimosis (principal); Z88.6 Allergy status to analgesic agent
CPT/HCPCS: 99284